=== PATIENT | female | born 1970 | race Two or more races ===

== ENCOUNTER 2020-12-10 15:41 | Inpatient (IN) | payer OTHER ==
[~2020-12-10] VITALS: Ht 180.3 cm; Wt 147.0 kg
--- NOTE | 2020-12-10 15:50 | NUR ---
[facility] FOR FOR ALTERED MENTAL STATUS. PATIENT A/OX1, ON A TRACHE, VENT DEPENDENT. FIO2 OF 40%. PLACED ON THE ROSE GRADER. IV LINE ESTABLISHED. DR. BARAJAS AT BEDSIDE FOR EVAL.
--- NOTE | 2020-12-10 16:08 | NUR ---
TAKEN TO CT
[2020-12-10] MEDS ORDERED: LIOT5TAB7 GT (16:18)
[2020-12-10] MEDS ORDERED: AMLO5TAB4 GT (16:18)
[2020-12-10] MEDS ORDERED: LEVO112T5 GT (16:18)
[2020-12-10] MEDS ORDERED: SERT100T GT (16:18)
[2020-12-10] MEDS ORDERED: IPRA4AER IH ×2 (16:18)
[2020-12-10] MEDS ORDERED: NA P133E RC (16:18)
[2020-12-10] MEDS ORDERED: ZINC220T4 GT (16:18)
[2020-12-10] MEDS ORDERED: TEMA15CA GT (16:18)
[2020-12-10] MEDS ORDERED: SENN8.6T19 GT (16:18)
[2020-12-10] MEDS ORDERED: MAGN400O6 GT (16:18)
[2020-12-10] MEDS ORDERED: BISA10SU11 RC (16:18)
[2020-12-10] MEDS ORDERED: TRAM50TA2 GT (16:18)
[2020-12-10] MEDS ORDERED: TAMS-12 GT (16:18)
[2020-12-10] MEDS ORDERED: FAMO20TA8 GT (16:18)
[2020-12-10] MEDS ORDERED: ASCO500C17 GT (16:18)
[2020-12-10] MEDS ORDERED: ENOX40DI9 SQ (16:18)
[2020-12-10] MEDS ORDERED: AMIN887L GT (16:18)
[2020-12-10] MEDS ORDERED: ACET325T53 GT (16:18)
[2020-12-10] MEDS ORDERED: LORA-258 GT (16:18)
[2020-12-10] MEDS ORDERED: INSU100V7 SQ (16:18)
[2020-12-10] MEDS ORDERED: NUT.237L30 GT (16:18)
[2020-12-10] MEDS ORDERED: INSU100V39 SQ (16:18)
[2020-12-10] MEDS ORDERED: FOLI0.8T3 GT (16:18)
--- NOTE | 2020-12-10 16:20 | NUR ---
MOVE SHEET SUBMITTED AND CALLED FOR BED.
[2020-12-10 16:34] LABS: CARBON DIOXIDE 38 mmol/L (21-32); CHLORIDE 104 mmol/L (98-107); CREATININE 1.3 mg/dL (0.6-1.3); GLUCOSE 187 mg/dL (74-106); SODIUM SERUM 146 mmol/L (136-145); UREA NITROGEN, BLOOD 67 mg/dL (7-18)
--- NOTE | 2020-12-10 16:35 | NUR ---
[facility] CALLED DRILLING MANAGER PAGED.
[2020-12-10 16:36] LABS: CALCIUM, SERUM 14.7 mg/dL (8.5-10.1)
--- NOTE | 2020-12-10 16:41 | NUR ---
COURTNEY CATHETER FR 16 INSERTED VIA STERILE TECHNIQUE, DR. BARAJAS AWARE. URINE OUTPUT SHOWED 50ML. URINE OBTAINED AND SENT TO LAB.
--- NOTE | 2020-12-10 16:42 | NUR ---
COVID SWAB SENT TO LAB.
[2020-12-10 16:45] LABS: BILIRUBIN,URINE Negative (NEGATIVE); COLOR,URINE YELLOW (YELLOW); LEUKOCYTE ESTERASE ,URINE Small (NEGATIVE); NITRITE, URINE Positive (NEGATIVE); PH,URINE 5.5 (5.0-8.0); PROTEIN,URINE 100 mg/dl (NEGATIVE); UGLUCOSE Negative (NEGATIVE); UROBILINOGEN,URINE 0.2 EU/dL (0.2)
[2020-12-10 16:49] LABS: BASOPHILS % (AUTO) 0.2 % (0.0-2.0); BILIRUBIN,TOTAL 0.3 mg/dL (0.2-1.0); EOSINOPHILS % (AUTO) 2.7 % (0.0-6.0); HEMATOCRIT 36 % (33-45); HEMOGLOBIN 11.4 g/dL (11.5-14.8); LYMPHOCYTES # (AUTO) 0.6 K/uL (0.8-4.8); LYMPHOCYTES % (AUTO) 5.2 % (20.0-44.0); MEAN CORPUSCULAR HGB CONC 32 g/dl (31.0-36.0); MEAN CORPUSCULAR VOLUME 97 fL (82-100); MONOCYTES # (AUTO) 0.6 K/uL (0.1-1.30); MONOCYTES % (AUTO) 4.6 % (2.0-12.0); NEUTROPHILS # (AUTO) 10.8 K/uL (1.8-8.9); NEUTROPHILS % (AUTO) 87.3 % (43.0-81.0); PLATELET COUNT (AUTO) 243 K/uL (150-450); RED BLOOD CELL COUNT(AUTO) 3.67 MIL/uL (4.0-5.2); WHITE BLOOD COUNT (AUTO) 12.4 K/uL (4.3-11.0)
[2020-12-10 16:50] LABS: ALANINE AMINOTRANSFERASE 70 U/L (12-78); ALBUMIN 2.7 g/dL (3.4-5.0); ALKALINE PHOSPHATASE 152 U/L (46-116); ASPARTATE AMINOTRANSFERASE 40 U/L (15-37); BILIRUBIN,DIRECT 0.1 mg/dL (0.0-0.2); TOTAL PROTEIN, SERUM 7.8 g/dL (6.4-8.2)
[2020-12-10 16:55] LABS: WBC,URINE 21-50 /HPF (0-3)
[2020-12-10 16:56] LABS: BACTERIA,URINE Many /HPF (None Seen)
[2020-12-10] MEDS ORDERED: IV NS 0.9% 1,000 ML BAG IV ONE (17:00)
[2020-12-10] MEDS ORDERED: CEFTRIAXONE 1GM BAG (ER ONLY) 1 GM/50 ML PIGGYBACK IV ONE (17:00)
[2020-12-10 17:02] LABS: CALCIUM OXALATE CRYSTALS,UR Few /HPF (None Seen)
[2020-12-10] MEDS ORDERED: CEFTRIAXONE 1GM BAG (ER ONLY) 50 ML IV ONE (17:02)
--- NOTE | 2020-12-10 17:07 | NUR ---
GOING TO TELE 105
--- NOTE | 2020-12-10 17:12 | NUR ---
[facility] CALLED AGAIN AIRPLANE PILOT [employer]ER[employer] PAGED.
--- NOTE | 2020-12-10 17:59 | NUR ---
REPORT GIVEN TO DAPHNIE DUDLEY FOR ANYI.
[2020-12-10] MEDS ORDERED: MAGNESIUM HYDROXIDE 30 ML UDC PO PRN (18:00)
[2020-12-10] MEDS ORDERED: ONDANSETRON HCL/PF 4 MG/2 ML VIAL IVP PRN (18:00)
[2020-12-10] MEDS ORDERED: ZOLPIDEM TARTRATE 5 MG TABLET PO PRN (18:00)
[2020-12-10] MEDS ORDERED: MAG HYDROX/AL HYDROX/SIMETH 30 ML UDC PO PRN (18:00)
[2020-12-10] MEDS ORDERED: ACETAMINOPHEN 325 MG TABLET PO PRN ×2 (18:00→18:30)
[2020-12-10] MEDS ORDERED: MAGNESIUM HYDROXIDE 30 ML UDC GT PRN ×2 (18:22→18:30)
[2020-12-10] MEDS ORDERED: MAG HYDROX/AL HYDROX/SIMETH 30 ML UDC GT PRN (18:22)
[2020-12-10] MEDS ORDERED: LORAZEPAM 0.5 MG TABLET GT PRN (18:30)
[2020-12-10] MEDS ORDERED: TEMAZEPAM 15 MG CAPSULE GT PRN (18:30)
[2020-12-10] MEDS ORDERED: NA PHOS,M-B/NA PHOS,DI-BA 1 EA ENEMA RC PRN (18:30)
[2020-12-10] MEDS ORDERED: BISACODYL SUPP (10 MG) 10 MG/SUPP.RECT SUPP.RECT RC PRN (18:30)
[2020-12-10] MEDS ORDERED: TRAMADOL HCL 50 MG TABLET GT PRN (18:30)
--- NOTE | 2020-12-10 18:31 | NUR ---
RN NOTE RECEIVED REPORT FROM ER NURSE ZACKARY.
[2020-12-10] MEDS ORDERED: IPRATROPIUM NEB FS 0.5 MG/2.5 ML AMPUL.NEB NEB PRN (19:00)
[2020-12-10] MEDS ORDERED: ALBUTEROL FS 2.5 MG/0.5 ML VIAL.NEB NEB PRN (19:00)
--- NOTE | 2020-12-10 19:09 | NUR ---
PATIENT TRANSFERRED TO ROOM 105 VIA ACLS PROTOCOL. PATIENT MORE AWAKE AND ALERT, IN STABLE CONDITION. ENDORSED TO DAPHNIE DUDLEY.
--- NOTE | 2020-12-10 19:10 | NUR ---
RN NOTES RECEIVED PT FROM ER VIA ANTONYRJAMEL ACCOMPANIED BY 2 ER STAFF AND TRANSFERRED TO BED VIA 3-4 PERSONS ASSIST. PT IS A/OX1-2; NON VERBAL; PT ON MECHANICAL VENT; SETTINGS PRESCRIBED WITH RESPIRATIONS EVEN AND UNLABORED. COMPREHENSIVE PHYSICAL ASSESSMENT AND PATIENT CARE DONE. CALL LIGHT WITHIN REACH, SAFETY MEASURES AND ISOLATION PRECAUTION IN PLACE, WILL CONTINUE MONITOR AND ASSESS THROUGHOUT THE SHIFT. WILL CARRY OUT MD ORDERS ACCORDINGLY. PETROLEUM SUPPLY SPECIALIST MADE AWARE.
--- NOTE | 2020-12-10 19:11 | NUR ---
RT pt transferred to floor. no complications. vent plugged in to red outlet. ambu bag at bedside. alarms on and audible. hob at 30 degrees. will continue to monitor.
[2020-12-10] MEDS: ALBUTEROL FS 2.5 MG/0.5 ML VIAL.NEB NEB SCH (19:30)
[2020-12-10] MEDS: IPRATROPIUM NEB FS 0.5 MG/2.5 ML AMPUL.NEB NEB SCH (19:30)
[2020-12-10] MEDS: IV NS 0.9% 1,000 ML IV SCH (19:32)
--- NOTE | 2020-12-10 19:55 | NUR ---
RT neb tx not given due to pending pcr results.
[2020-12-10 20:00] VITALS: BP 122/51
[2020-12-10] MEDS: GLUCERNA 1.2 1,000 ML BOTTLE NG SCH (20:37)
[2020-12-10] MEDS: FAMOTIDINE (20 MG) 20 MG TABLET GT SCH (20:53)
[2020-12-10] MEDS: INSULIN GLARGINE, 100 UNIT/ML CARTRIDGE SQ SCH (21:09)
[2020-12-10] MEDS: SENNOSIDES 8.6 MG TABLET GT SCH (22:30)
[2020-12-11] VITALS: BP 132/60
--- NOTE | 2020-12-11 | NUR ---
RN NOTES PATIENT REMAINED TO BE IN NO SIGNS OF ACUTE RESPIRATORY DISTRESS , VITAL SIGNS WNL AT THIS TIME. WILL CONTINUE TO MONITOR AND REASSESS FOR ANY CHANGES THROUGHOUT THE SHIFT.
[2020-12-11] MEDS: ALBUTEROL FS 2.5 MG/0.5 ML VIAL.NEB NEB SCH ×4 (01:30→19:30)
[2020-12-11] MEDS: IPRATROPIUM NEB FS 0.5 MG/2.5 ML AMPUL.NEB NEB SCH ×4 (01:30→19:30)
[2020-12-11 04:00] VITALS: BP 127/60
[2020-12-11] MEDS: IV NS 0.9% 1,000 ML IV SCH ×3 (04:00→23:32)
--- NOTE | 2020-12-11 04:00 | NUR ---
RN NOTES NO NOTED CHANGES IN PATIENT CONDITION AT THIS TIME; PATIENT VITALS STABLE, NO SIGNS OF ACUTE RESPIRATORY DISTRESS. AM PATIENT CARE RENDERED. WILL CONTINUE TO MONITOR AND REASSESS FOR ANY CHANGES THROUGHOUT THE SHIFT.
--- NOTE | 2020-12-11 06:33 | NUR ---
RN CLOSING NOTE: PATIENT REMAINS IN ROOM IN NO SIGNS OF RESPIRATORY DISTRESS, PATIENT STILL ON MECH VENT; SETTINGS PRESCRIBED;TOLERATING WELL SATURATING @ >95% SP02. SAFETY MEASURES IMPLEMENTED, BED IN LOWEST POSITION, LOCKED, SIDE RAILS UP, CALL LIGHT WITHIN REACH. ALL NEEDS AND ORDERS ADDRESSED DURING THE SHIFT. IV ACCESS MAINTAINED INTACT, SECURED AND FLUSHING WELL. ALL DUE MEDS GIVEN ORDERED & SCHEDULED ; PATIENT TOLERATED WELL. PATIENT KEPT CLEAN AND COMFORTABLE WITHIN THE SHIFT. PATIENT ENDORSED TO INCOMING SHIFT RN WITH STABLE VITAL SIGN AND FOR CONTINUITY OF CARE.
--- NOTE | 2020-12-11 07:35 | NUR ---
RN OPENING NOTES: RECEIVED PATIENT IN SUPINE POS. NO SOB NOTED, NO DISTRESS NOTED. PT HAS NO FACIAL EXPRESSIONS SIGNIFYING PAIN. PATIENT ON MECH VENT; SETTINGS PRESCRIBED;TOLERATING WELL SATURATING @ >96% SP02. SAFETY MEASURES IMPLEMENTED, BED IN LOWEST POSITION, LOCKED, SIDE RAILS UP, CALL LIGHT WITHIN REACH. WILL CONTINUE TO MONITOR.
[2020-12-11 08:00] VITALS: BP 130/60
[2020-12-11] MEDS: LEVOTHYROXINE SODIUM 100 MCG TABLET GT SCH (08:27)
[2020-12-11] MEDS: FOLIC ACID 1 MG TABLET GT SCH (08:41)
[2020-12-11] MEDS: SERTRALINE HCL 50 MG TABLET GT SCH ×2 (08:41→16:03)
[2020-12-11] MEDS: LIOTHYRONINE SODIUM (5 MCG/TA 5 MCG TABLET GT SCH ×2 (08:41→16:03)
[2020-12-11] MEDS: FAMOTIDINE (20 MG) 20 MG TABLET GT SCH ×2 (08:43→21:42)
[2020-12-11] MEDS: TAMSULOSIN 0.4 MG CAP.SR.24H GT SCH (08:43)
[2020-12-11] MEDS: ZINC SULFATE 220 MG CAPSULE GT SCH (08:43)
[2020-12-11] MEDS: ASCORBIC ACID 500 MG TABLET GT SCH (08:43)
[2020-12-11] MEDS: AMLODIPINE BESYLATE 5 MG TABLET GT SCH (08:43)
[2020-12-11] MEDS: ENOXAPARIN SODIUM 40 MG/0.4 ML DISP.SYRIN SQ SCH (08:58)
[2020-12-11] MEDS ORDERED: PROSTAT (PYXIS) 30 ML UDC GT SCH (09:00)
[2020-12-11] MEDS: INSULIN GLARGINE, 100 UNIT/ML CARTRIDGE SQ SCH ×2 (09:15→21:59)
[2020-12-11] MEDS: PROSOURCE / PROSTAT (PYXIS) 30 ML UDC GT SCH ×2 (09:16→16:04)
[2020-12-11 10:10] LABS: BASOPHILS % (AUTO) 0.1 % (0.0-2.0); EOSINOPHILS % (AUTO) 3.3 % (0.0-6.0); HEMATOCRIT 33 % (33-45); HEMOGLOBIN 10.6 g/dL (11.5-14.8); LYMPHOCYTES # (AUTO) 1.1 K/uL (0.8-4.8); LYMPHOCYTES % (AUTO) 10.8 % (20.0-44.0); MEAN CORPUSCULAR HGB CONC 32 g/dl (31.0-36.0); MEAN CORPUSCULAR VOLUME 97 fL (82-100); MONOCYTES % (AUTO) 10.2 % (2.0-12.0); NEUTROPHILS # (AUTO) 7.5 K/uL (1.8-8.9); NEUTROPHILS % (AUTO) 75.6 % (43.0-81.0); PLATELET COUNT (AUTO) 225 K/uL (150-450); RED BLOOD CELL COUNT(AUTO) 3.36 MIL/uL (4.0-5.2); WHITE BLOOD COUNT (AUTO) 9.9 K/uL (4.3-11.0)
[2020-12-11 10:15] LABS: CREATININE 1.3 mg/dL (0.6-1.3); MAGNESIUM 2.6 mg/dL (1.8-2.4); PHOSPHORUS 3.5 mg/dL (2.5-4.9)
[2020-12-11 10:16] LABS: ABG BASE EXCESS 6.6 mmol/L; ABG OXYGEN SATURATION 96.3 % (92.0-98.5); ABG PCO2 56.5 mmHg (35.0-45.0); ABG PH 7.384 (7.350-7.450); ABG PO2 83.9 mmHg (75.0-100.0); AaDO2 136.3 mmHg; COHb 0.5 % (0.5-1.5); MetHb 0.4 % (0.0-1.5); O2Hb 95.4 % (94.0-97.0); VENT MODE, BG AC 10 400 40% +5
[2020-12-11 10:41] LABS: CALCIUM, SERUM 13.7 mg/dL (8.5-10.1)
[2020-12-11 11:01] LABS: ALBUMIN 2.3 g/dL (3.4-5.0)
[2020-12-11 11:37] LABS: CALCIUM, SERUM 13.9 mg/dL (8.5-10.1)
[2020-12-11 12:00] VITALS: BP 141/75
[2020-12-11 16:00] VITALS: BP 127/60
[2020-12-11] MEDS: CEFTRIAXONE 1 G in IV D5W 50 ML IV SCH (16:00)
[2020-12-11] MEDS: ACETAMINOPHEN 650 MG/20.3 ML UDC GT PRN ×2 (18:18→21:42)
[2020-12-11] MEDS: GLUCERNA 1.2 1,000 ML BOTTLE NG SCH (18:46)
--- NOTE | 2020-12-11 18:58 | NUR ---
RN CLOSING NOTES: PATIENT IN SUPINE POS. NO SOB NOTED, NO DISTRESS NOTED. PT HAS NO FACIAL EXPRESSIONS SIGNIFYING PAIN. PATIENT ON MECH VENT; SETTINGS PRESCRIBED;TOLERATING WELL SATURATING @ >98% SP02. ALL MEDICATIONS GIVEN AND TOLERATED WELL. PT KEPT CLEAN, DRY, COMFORTABLE. SAFETY MEASURES IMPLEMENTED, BED IN LOWEST POSITION, LOCKED, SIDE RAILS UP. NO SIGNIFICANT CHANGES THROUGHOUT SHIFT. ENDORSE TO OVERHEAD CRANE OPERATOR RN IN STABLE CONDITION.
--- NOTE | 2020-12-11 19:30 | NUR ---
RN OPENING NOTE PATIENT IN BED, EYES CLOSED. PATIENT ONLY OPENS EYES, NON VERBAL. PATIENT RECEIVED WITH VENT SETTINGS AC 10, TV 400, FIO2 40, PEEP 5% SATTING AT 98%. PATIENT HAS A COURTNEY DRAINING YELLOW URINE VIA GRAVITY. G TUBE HAS GLUCERNA 1.2 AT 70 CC/HR. RESIDUAL IS 110. WILL PAUSE FOR 1 HOUR AND RESTART AT A LOWER RATE. PATIENT HAS A L HAND 18 G RUNNING NS @100 ML/HR AND A R SUBCLAVIAN HD CATH. SAFETY MEASURES IN PLACE: BED LOCKED AND IN LOWEST POSITION, CALL LIGHT WITHIN REACH, SIDE RAILS UP. WILL MONITOR PATIENT CLOSELY.
--- NOTE | 2020-12-11 19:45 | NUR ---
RCVD PT TRACHED SHILEY 8 XLT ON VENT WITH THE SETTINGS OF AC 10, VT 400, FIO2 40%, PEEP 5. PT IS OBTUNDED ,NON VERBAL. BREATHING TX NOT GIVEN DUE TO PENDING PCR COVID TEST RESULT. SUCTIONED SMALL AMOUNT OF YELLOW THICK SECRETIONS. NO RESPIRATORY DISTRESS NOTED AT THIS TIME. CUFF CHECKED SEISMIC PROSPECTING OBSERVER. VENT PLUGGED INTO RED OUTLET , VENT ALARMS SET AND AUDIBLE. AMBU BAG AT BEDSIDE. WILL CONTINUE TO MONITOR PT T/O SHIFT.
[2020-12-11 20:00] VITALS: BP 128/65
[2020-12-11] MEDS: SENNOSIDES 8.6 MG TABLET GT SCH (21:42)
--- NOTE | 2020-12-11 22:00 | NUR ---
RN NOTE PATIENT GIVEN TYLENOL FOR FEVER 100.6, COOLING MEASURES IMPLEMENTED. BS WAS 150, LANTUS ADMINISTERED. HAS CONTINUOUS TF.
[2020-12-12] VITALS: BP 122/78
[2020-12-12] MEDS: IPRATROPIUM NEB FS 0.5 MG/2.5 ML AMPUL.NEB NEB SCH ×5 (01:08→20:12)
[2020-12-12] MEDS: ALBUTEROL FS 2.5 MG/0.5 ML VIAL.NEB NEB SCH ×5 (01:08→20:12)
[2020-12-12 04:00] VITALS: BP 124/67
--- NOTE | 2020-12-12 06:50 | NUR ---
RN CLOSING NOTE PATIENT IN BED, EYES CLOSED. PATIENT ONLY OPENS EYES, NON VERBAL. PATIENT TOLERATES VENT SETTINGS OF AC 10, TV 400, FIO2 40, PEEP 5% SATTING AT 98%. PATIENT HAS A COURTNEY DRAINING YELLOW URINE VIA GRAVITY. G TUBE HAS GLUCERNA 1.2 AT 70 CC/HR. TOLERATES WELL. PATIENT HAS A L HAND 18 G RUNNING NS @100 ML/HR AND A R SUBCLAVIAN HD CATH. SAFETY MEASURES MAINTAINED. ALL NEEDS MET AND ATTENDED, ALL ORDERS CARRIED OUT. WILL ENDORSE TO DAY SHIFT NURSE FOR ANYI.
[2020-12-12 07:19] LABS: BASOPHILS % (AUTO) 0.2 % (0.0-2.0); EOSINOPHILS % (AUTO) 2.7 % (0.0-6.0); HEMATOCRIT 30 % (33-45); HEMOGLOBIN 9.8 g/dL (11.5-14.8); LYMPHOCYTES # (AUTO) 1.7 K/uL (0.8-4.8); LYMPHOCYTES % (AUTO) 18.5 % (20.0-44.0); MEAN CORPUSCULAR HGB CONC 33 g/dl (31.0-36.0); MEAN CORPUSCULAR VOLUME 97 fL (82-100); MONOCYTES # (AUTO) 1.2 K/uL (0.1-1.30); MONOCYTES % (AUTO) 12.9 % (2.0-12.0); NEUTROPHILS # (AUTO) 5.9 K/uL (1.8-8.9); NEUTROPHILS % (AUTO) 65.7 % (43.0-81.0); PLATELET COUNT (AUTO) 213 K/uL (150-450); RED BLOOD CELL COUNT(AUTO) 3.07 MIL/uL (4.0-5.2); WHITE BLOOD COUNT (AUTO) 8.9 K/uL (4.3-11.0)
[2020-12-12] MEDS: LEVOTHYROXINE SODIUM 100 MCG TABLET GT SCH (07:30)
--- NOTE | 2020-12-12 07:34 | NUR ---
RN OPENINGS; RECEIVED PT IN BED, RESTING. IN SUPINE POS. PT IS NON VERBAL. A/OX1. PT ON TRACH #8, AC 10, TV 4. PT ON COURTNEY DRAINING YELLOW COLOR URINE.IV ACCESS NOTED ON L HAND 18G. PATENT WITH NO SIGNS ON INFILTRATION. PT ON GLUCERNA 1.2 @70CC/HR. SAFETY MEASURES RENDERED, BED IN LOWEST POS. LOCKED WITH CALL LIGHT WITHIN REACH. WILL CONTINUE TO MONITOR.
[2020-12-12 07:41] LABS: ALBUMIN 2.2 g/dL (3.4-5.0); BILIRUBIN,TOTAL 0.2 mg/dL (0.2-1.0); CALCIUM, SERUM 12.7 mg/dL (8.5-10.1); CREATININE 1.5 mg/dL (0.6-1.3); MAGNESIUM 2.7 mg/dL (1.8-2.4); POTASSIUM 3.7 mmol/L (3.5-5.1); TOTAL PROTEIN, SERUM 6.8 g/dL (6.4-8.2)
--- NOTE | 2020-12-12 07:58 | NUR ---
RT PATIENT REC'D TRACHED ON VENT WITH ORDERED SETTINGS. ALARMS CHECKED + AUDIBLE. ABEBA BAG AT HOB. Addendum: 12/12/20 at 1733 by AKILAH SHEA RT Amended: Links added.
[2020-12-12 08:00] VITALS: BP 153/68
[2020-12-12] MEDS: FOLIC ACID 1 MG TABLET GT SCH (08:38)
[2020-12-12] MEDS: ZINC SULFATE 220 MG CAPSULE GT SCH (08:38)
[2020-12-12] MEDS: SERTRALINE HCL 50 MG TABLET GT SCH ×2 (08:38→16:02)
[2020-12-12] MEDS: TAMSULOSIN 0.4 MG CAP.SR.24H GT SCH (08:38)
[2020-12-12] MEDS: LIOTHYRONINE SODIUM (5 MCG/TA 5 MCG TABLET GT SCH ×2 (08:38→16:02)
[2020-12-12] MEDS: FAMOTIDINE (20 MG) 20 MG TABLET GT SCH ×2 (08:39→21:57)
[2020-12-12] MEDS: ASCORBIC ACID 500 MG TABLET GT SCH (08:39)
[2020-12-12] MEDS: INSULIN GLARGINE, 100 UNIT/ML CARTRIDGE SQ SCH ×2 (08:40→22:03)
[2020-12-12] MEDS: AMLODIPINE BESYLATE 5 MG TABLET GT SCH (08:41)
[2020-12-12] MEDS: PROSOURCE / PROSTAT (PYXIS) 30 ML UDC GT SCH ×2 (08:45→16:07)
[2020-12-12] MEDS: ENOXAPARIN SODIUM 40 MG/0.4 ML DISP.SYRIN SQ SCH (08:51)
[2020-12-12 08:59] LABS: BAND % (MANUAL) 4 % (0.0-5.0); EOSINOPHILS % (MANUAL) 3 % (0-4); LYMPHOCYTES % (MANUAL) 20 % (16-48); MONOCYTES % (MANUAL) 12 % (0-11.0); MYELOCYTES % 1 % (0-0); NEUTROPHILS % (MANUAL) 60 (42-76)
--- NOTE | 2020-12-12 09:02 | NUR ---
WOUND CARE CONSULT: REVIEWED CHART, NURSING DOCUMENTATION AND PHOTOS WHICH INDICATE LOWER EXTREMITY DISCOLORATIONS/SCARS, SACRAL SCARRING AND RASHES, ALL PRESENT ON ADMISSION. DR FRANK AND DR LION NOTIFIED OF PT ADMISSION. RECOMMENDATIONS MADE FOR SKIN PROTECTION. DISCUSSED WITH NURSING STAFF. PT IS ON FIRST STEP CELIO RNEEE [facility]. IN AGREEMENT WITH PLAN OF CARE.
[2020-12-12] MEDS: IV NS 0.9% 1,000 ML IV SCH (10:09)
[2020-12-12 12:00] VITALS: BP 146/64
[2020-12-12] MEDS: Z GUARD REMEDY 2 OZ OINT TP PRN ×2 (14:15→14:21)
[2020-12-12] MEDS: Z GUARD REMEDY 2 OZ OINT TP SCH ×2 (14:50→21:57)
[2020-12-12 16:00] VITALS: BP 128/68
[2020-12-12] MEDS: CEFTRIAXONE 1 G in IV D5W 50 ML IV SCH (16:03)
[2020-12-12] MEDS: IV 1/2NS 1000 ML 1,000 ML IV PRN (16:06)
--- NOTE | 2020-12-12 18:17 | NUR ---
RN CLOSING NOTES: PATIENT IN SUPINE RESTING IN BED. NO SOB NOTED, NO DISTRESS NOTED. PT HAS NO FACIAL PATIENT ON MECH VENT; SETTINGS PRESCRIBED;TOLERATING WELL SATURATING @ >98% SP02. IV FLUIDS CHANGED TO 1/2 NSS @100CC/HR. ALL MEDICATIONS GIVEN AND TOLERATED WELL. PT KEPT CLEAN, DRY, COMFORTABLE. SAFETY MEASURES IMPLEMENTED, BED IN LOWEST POSITION, LOCKED, SIDE RAILS UP. NO SIGNIFICANT CHANGES THROUGHOUT SHIFT. ENDORSE TO CONTRACT PROJECT MANAGER RN IN STABLE CONDITION.
[2020-12-12] MEDS: GLUCERNA 1.2 1,000 ML BOTTLE GT PRN (18:31)
--- NOTE | 2020-12-12 19:30 | NUR ---
1930 breathing tx held due to pending pcr result. rn notified Addendum: 12/12/20 at 2326 by SIGRID CHERY RT Amended: Links added.
--- NOTE | 2020-12-12 19:35 | NUR ---
RN NOTE PT RECEIVED IN BED. PT IS TRACH/VENT. SETTINGS AT AC 10, TV 400, FIO2 40, AND PEEP 5. TOLERATING VENT SETTINGS WELL. PT IS A/0X2-3. PT ON TELE MONITOR SHOWING NSR. COURTNEY CATH NOTED. G-TUBE FLUSHED WITH NO RESIDUAL NOTED. GLUCERNA RUNNING AT 70 ML/HR. PT TOLERATING WELL. RIGHT SUBCLAVIAN HD CATH NOTED. IV LINE ON LEFT HAND GAUGE 18 NOTED. FLUSHED, PATENT AND INTACT WITH NO INFILTRATION. ALL SAFETY MEASURES IMPLEMENTED. WILL CONTINUE TO MONITOR AND ASSESS FOR ANY CHANGES.
[2020-12-12 20:00] VITALS: BP 129/69
[2020-12-12] MEDS: SENNOSIDES 8.6 MG TABLET GT SCH (21:57)
[2020-12-13] VITALS: BP 121/86
[2020-12-13] MEDS: IPRATROPIUM NEB FS 0.5 MG/2.5 ML AMPUL.NEB NEB SCH ×4 (01:30→20:18)
[2020-12-13] MEDS: ALBUTEROL FS 2.5 MG/0.5 ML VIAL.NEB NEB SCH ×4 (01:30→20:17)
[2020-12-13] MEDS: IV 1/2NS 1000 ML 1,000 ML IV PRN ×2 (03:26→13:12)
[2020-12-13 04:00] VITALS: BP 116/66
[2020-12-13 06:17] LABS: BASOPHILS % (AUTO) 0.2 % (0.0-2.0); EOSINOPHILS % (AUTO) 4.8 % (0.0-6.0); HEMATOCRIT 29 % (33-45); HEMOGLOBIN 9.4 g/dL (11.5-14.8); LYMPHOCYTES # (AUTO) 1.5 K/uL (0.8-4.8); LYMPHOCYTES % (AUTO) 18.6 % (20.0-44.0); MEAN CORPUSCULAR HGB CONC 33 g/dl (31.0-36.0); MEAN CORPUSCULAR VOLUME 97 fL (82-100); MONOCYTES % (AUTO) 12.5 % (2.0-12.0); NEUTROPHILS % (AUTO) 63.9 % (43.0-81.0); PLATELET COUNT (AUTO) 219 K/uL (150-450); RED BLOOD CELL COUNT(AUTO) 2.96 MIL/uL (4.0-5.2); WHITE BLOOD COUNT (AUTO) 7.9 K/uL (4.3-11.0)
[2020-12-13 06:47] LABS: CALCIUM, SERUM 11.6 mg/dL (8.5-10.1); CREATININE 1.3 mg/dL (0.6-1.3); POTASSIUM 3.8 mmol/L (3.5-5.1)
--- NOTE | 2020-12-13 07:19 | NUR ---
RN NOTE NO CHANGES IN PT CONDITION DURING SHIFT. PT IS TRACH/VENT. SETTINGS AT AC 10, TV 400, FIO2 40, AND PEEP 5. TOLERATING VENT SETTINGS WELL. PT IS A/0X2-3. PT ON TELE MONITOR SHOWING NSR. GLUCERNA RUNNING AT 70 ML/HR. PT TOLERATING WELL. RIGHT SUBCLAVIAN HD CATH NOTED. IV LINE ON LEFT HAND GAUGE 18 NOTED. IV LINE FLUSHED, PATENT AND INTACT WITH NO INFILTRATION. ALL DUE MEDS GIVEN ORDERED. PT KEPT CLEAN AND COMFORTABLE. ALL SAFETY MEASURES IMPLEMENTED. WILL ENDORSE TO MORNING SHIFT RN FOR ANYI.
[2020-12-13 08:00] VITALS: BP_SYST 157; BP_DIAS 69; BP_DIAS 88
[2020-12-13] MEDS: LEVOTHYROXINE SODIUM 100 MCG TABLET GT SCH (08:23)
[2020-12-13] MEDS: FAMOTIDINE (20 MG) 20 MG TABLET GT SCH ×2 (08:24→20:53)
[2020-12-13] MEDS: AMLODIPINE BESYLATE 5 MG TABLET GT SCH (08:24)
[2020-12-13] MEDS: SERTRALINE HCL 50 MG TABLET GT SCH ×2 (08:25→16:07)
[2020-12-13] MEDS: ASCORBIC ACID 500 MG TABLET GT SCH (08:25)
[2020-12-13] MEDS: FOLIC ACID 1 MG TABLET GT SCH (08:25)
[2020-12-13] MEDS: TAMSULOSIN 0.4 MG CAP.SR.24H GT SCH (08:25)
[2020-12-13] MEDS: ZINC SULFATE 220 MG CAPSULE GT SCH (08:25)
[2020-12-13] MEDS: PROSOURCE / PROSTAT (PYXIS) 30 ML UDC GT SCH ×2 (08:25→16:08)
[2020-12-13] MEDS: ENOXAPARIN SODIUM 40 MG/0.4 ML DISP.SYRIN SQ SCH (08:26)
[2020-12-13] MEDS: Z GUARD REMEDY 2 OZ OINT TP PRN (08:28)
[2020-12-13] MEDS: Z GUARD REMEDY 2 OZ OINT TP SCH ×2 (08:29→20:55)
[2020-12-13] MEDS: LIOTHYRONINE SODIUM (5 MCG/TA 5 MCG TABLET GT SCH ×2 (08:44→16:07)
[2020-12-13] MEDS: INSULIN GLARGINE, 100 UNIT/ML CARTRIDGE SQ SCH ×2 (08:45→20:53)
[2020-12-13 10:07] LABS: *SPE A/G RATIO 0.6 (0.7-1.7); *SPE ALPHA-1-GLOBULIN 0.4 g/dL (0.0-0.4); *SPE ALPHA-2-GLOBULIN 0.8 g/dL (0.4-1.0); *SPE BETA GLOBULIN 1.1 g/dL (0.7-1.3); *SPE M-SPIKE Not Observed g/dL (Not Observed)
[2020-12-13 10:08] LABS: EOSINOPHILS % (MANUAL) 3 % (0-4); LYMPHOCYTES % (MANUAL) 24 % (16-48); MONOCYTES % (MANUAL) 9 % (0-11.0); MYELOCYTES % 1 % (0-0); NEUTROPHILS % (MANUAL) 63 (42-76)
[2020-12-13 12:00] VITALS: BP_SYST 112; BP_SYST 142; BP_DIAS 68; BP_DIAS 72
[2020-12-13 16:00] VITALS: BP 130/87
[2020-12-13] MEDS: CEFTRIAXONE 1 G in IV D5W 50 ML IV SCH (16:07)
[2020-12-13] MEDS: ACETAMINOPHEN 650 MG/20.3 ML UDC GT PRN (16:52)
--- NOTE | 2020-12-13 18:21 | NUR ---
RN CLOSING NOTES PT IN BED RESTING. PT IS A/OX1-2. PT IS TRACH/VENT. SETTINGS AT AC 10, TV 400, FIO2 40, AND PEEP 5. TOLERATING VENT SETTINGS WELL. COURTNEY CATH NOTED. G-TUBE FLUSHED AND RUNNING GLUCERNA 70 ML/HR. PT TOLERATING WELL. RIGHT SUBCLAVIAN HD CATH NOTED. (L) MIDLINE G 18 RUNNING AND PATENT. PATENT WITH NO SIGNS OF INFILTRATION. FALL SAFETY MEASURES IMPLEMENTED, BED IN LOWEST POS. LOCKED. NO SIGNIFICANT CHANGES. ENDORSED TO MACHINE STRIPPER CUTTER IN STABLE CONDITION.
[2020-12-13 20:00] VITALS: BP 124/51
[2020-12-13] MEDS: SENNOSIDES 8.6 MG TABLET GT SCH (21:19)
[2020-12-13] MEDS ORDERED: MICAFUNGIN SODIUM 100 MG VIAL IV ONE (23:39)
[2020-12-13] MEDS: MICAFUNGIN SODIUM 100 MG in IV NS 0.9% 100 ML IV SCH (23:42)
[2020-12-14] VITALS: BP 127/63
[2020-12-14] MEDS: IV 1/2NS 1000 ML 1,000 ML IV PRN (01:00)
[2020-12-14] MEDS: ALBUTEROL FS 2.5 MG/0.5 ML VIAL.NEB NEB SCH ×4 (01:46→19:15)
[2020-12-14] MEDS: IPRATROPIUM NEB FS 0.5 MG/2.5 ML AMPUL.NEB NEB SCH ×4 (01:46→19:15)
[2020-12-14] MEDS: GLUCERNA 1.2 1,000 ML BOTTLE GT PRN (03:14)
[2020-12-14 04:00] VITALS: BP 98/59
--- NOTE | 2020-12-14 06:57 | NUR ---
RN CLOSING NOTES PATENT IN BED CONTINUE ON MECHANICAL VENTILATOR WITH TRACH/VENT, TOLERATED SETTINGS WELL, NO SOB/ACUTE DISTRESS NOTED DURING THE NIGHT, AFEBRILE AT THE BEGINNING OF SHIFT, ON IVF ORDERED VIA MIDLINE, G-TUBE FLUSHED AND RUNNING GLUCERNA 70 ML/HR. PT TOLERATING WELL, RIGHT SUBCLAVIAN HD CATH IN PLACED, BED IN LOWEST POS. LOCKED, NO SIGNIFICANT CHANGE IN CONDITION DURING THE NIGHT, WILL ENDORSED TO ONCOMING NURSE FOR CONTINUATION OF CARE.
[2020-12-14 07:12] LABS: BASOPHILS % (AUTO) 0.3 % (0.0-2.0); EOSINOPHILS % (AUTO) 5.7 % (0.0-6.0); HEMATOCRIT 29 % (33-45); HEMOGLOBIN 9.4 g/dL (11.5-14.8); LYMPHOCYTES # (AUTO) 1.9 K/uL (0.8-4.8); LYMPHOCYTES % (AUTO) 26.7 % (20.0-44.0); MEAN CORPUSCULAR HGB CONC 33 g/dl (31.0-36.0); MEAN CORPUSCULAR VOLUME 98 fL (82-100); MONOCYTES # (AUTO) 1.1 K/uL (0.1-1.30); MONOCYTES % (AUTO) 15.2 % (2.0-12.0); NEUTROPHILS # (AUTO) 3.7 K/uL (1.8-8.9); NEUTROPHILS % (AUTO) 52.1 % (43.0-81.0); PLATELET COUNT (AUTO) 210 K/uL (150-450); RED BLOOD CELL COUNT(AUTO) 2.94 MIL/uL (4.0-5.2)
--- NOTE | 2020-12-14 07:30 | NUR ---
RN KASSANDRA OPENING NOTE VENT/TRACH PT, A/Ox1, PT IS TIRED, IN BED SEMIFOWLERS ON VENT SETTINGS PER MD ORDER: AC 10, TV 400, FIO2 40, PEEP 5, SPO2 97%, BREATHING EVEN AND UNLABORED, NO S/S OF RESP DISTRESS OR SOB. PER REPORT PT ABLE TO MOUTH WORDS AND NEEDS, BUT CURRENTLY UNABLE TO DUE SO. COURTNEY CATH NOTED, DRAINING CLEAR KHALIDA URINE TO GRAVITY. G-TUBE FLUSHED, PATENT, AND RUNNING GLUCERNA 70 ML/HR, 0 RESIDUALS NOTED, PT TOLERATING WELL. RIGHT SUBCLAVIAN HD CATH NOTED. MITCHEL MIDLINE FLUSHED AND INTACT RUNNING 1/2 NS @ 125 ML/HR, LEFT HAND # 18, PATENT, BOTH WITH NO SIGNS OF INFILTRATION. PT SACRAL REDNESS NOTED, RT ANKLE DTI COVERED IN MEPILEX. ALL SAFETY PRECAUTIONS IN PLACE, WILL CONT TO MONITOR
[2020-12-14 07:59] LABS: CREATININE 1.3 mg/dL (0.6-1.3); PHOSPHORUS 3.4 mg/dL (2.5-4.9); POTASSIUM 3.7 mmol/L (3.5-5.1)
[2020-12-14 08:00] VITALS: BP 128/71
[2020-12-14 08:00] LABS: CALCIUM, SERUM 10.8 mg/dL (8.5-10.1)
[2020-12-14] MEDS: SERTRALINE HCL 50 MG TABLET GT SCH ×2 (08:24→17:44)
[2020-12-14] MEDS: ASCORBIC ACID 500 MG TABLET GT SCH (08:24)
[2020-12-14] MEDS: TAMSULOSIN 0.4 MG CAP.SR.24H GT SCH (08:24)
[2020-12-14] MEDS: LIOTHYRONINE SODIUM (5 MCG/TA 5 MCG TABLET GT SCH ×2 (08:24→17:44)
[2020-12-14] MEDS: LEVOTHYROXINE SODIUM 100 MCG TABLET GT SCH (08:24)
[2020-12-14] MEDS: ZINC SULFATE 220 MG CAPSULE GT SCH (08:25)
[2020-12-14] MEDS: FAMOTIDINE (20 MG) 20 MG TABLET GT SCH ×2 (08:25→20:54)
[2020-12-14] MEDS: FOLIC ACID 1 MG TABLET GT SCH (08:25)
[2020-12-14] MEDS: PROSOURCE / PROSTAT (PYXIS) 30 ML UDC GT SCH ×2 (08:25→17:43)
[2020-12-14] MEDS: ENOXAPARIN SODIUM 40 MG/0.4 ML DISP.SYRIN SQ SCH (08:26)
[2020-12-14] MEDS: AMLODIPINE BESYLATE 5 MG TABLET GT SCH (08:26)
[2020-12-14] MEDS: Z GUARD REMEDY 2 OZ OINT TP SCH ×2 (08:27→21:12)
[2020-12-14 09:37] LABS: BAND % (MANUAL) 1 % (0.0-5.0); EOSINOPHILS % (MANUAL) 9 % (0-4); LYMPHOCYTES % (MANUAL) 29 % (16-48); MONOCYTES % (MANUAL) 14 % (0-11.0); MYELOCYTES % 1 % (0-0); NEUTROPHILS % (MANUAL) 46 (42-76)
[2020-12-14] MEDS: INSULIN GLARGINE, 100 UNIT/ML CARTRIDGE SQ SCH ×2 (10:17→21:12)
[2020-12-14 12:00] VITALS: BP 124/65
[2020-12-14 16:00] VITALS: BP 122/75
[2020-12-14] MEDS: CEFTRIAXONE 1 G in IV D5W 50 ML IV SCH (17:43)
--- NOTE | 2020-12-14 19:00 | NUR ---
RN KASSANDRA CLOSING NOTE PT ON SAME VENT SETTINGS PER MD ORDER, TOLERATING WELL, SPO2 > 97%, NO RESP DISTRESS NOTED. NO CHANGES TO PT DURING SHIFT, PT NOW A/Ox 2-3. ALL PT SAFETY PRECAUTIONS IN PLACE, ANYI ENDORSED TO PHILOSOPHY PROFESSOR RN
--- NOTE | 2020-12-14 19:30 | NUR ---
RN OPENING NOTES: RECEIVED PT A/OX2-3 IN BED RESTING COMFORTABLY. PATIENT IN NO S/SX OF ACUTE DISTRESS AT THIS TIME. NO SOB NOTED. PATIENT'S BREATHING IS EVEN AND UNLABORED. PATIENT ON MECHANICAL VENT; SETTINGS PRESCRIBED; PT TOLERATED WELL. AMBU BAG AT BED SIDE ALARMS SET PER PROTOCOL AND AUDIBLE. VENT PLUGGED IN TO RED OUTLET. PT HAS G TUBE FLUSHING AND PATENT; SITE CLEAN DRY AND INTACT; NO RESIDUAL NOTED; CONNECTED TO GTUBE FEEDING OF GLUCERNA 1.2 @70CC/HR;TOLERATES WELL. NOTED IV SITE ON L UA MIDLINE#18 ; PATENT, INTACT AND FLUSHING WELL; NO S/S OF INFECTION OR INFILTRATION. PT ALSO HAS R SUBCLAVIAN HD CATH SECURED AND INTACT NO SIGNS OF INFECTION. WITH IV FLUID RUNNING ORDERED. WITH COURTNEY CATH IN PLACE, MODERATE URINE OUTPUT NOTED. ON SPECIALTY MATTRESS. SAFETY MEASURES HAVE BEEN PROVIDED AND IMPLEMENTED. PATIENT BED ALARM IS ON. HEAD OF BED ELEVATED. BED IS LOCKED, IN LOWEST POSITION AND SIDE RAILS UP. CALL LIGHT WITHIN REACH OF THE PATIENT. APPLICABLE ISOLATION PRECAUTIONS IN PLACE. WILL CONTINUE TO MONITOR AND REASSESS FOR ANY CHANGES AND WILL CARRY OUT ANY ONGOING AND ACTIVE MD ORDER.
[2020-12-14 20:00] VITALS: BP 127/84
[2020-12-14] MEDS: SENNOSIDES 8.6 MG TABLET GT SCH (21:10)
--- NOTE | 2020-12-14 21:10 | NUR ---
RN NOTES ACCU CHECK DONE 164MG/DL. WILL GIVE SCHEDULED LANTUS 24U. PT WITH ONGOING GTUBE FEEDING. WILL CONTINUE TO MONITOR AND ASSESS THROUGHOUT THE SHIFT.
[2020-12-14] MEDS: MICAFUNGIN SODIUM 100 MG in IV NS 0.9% 100 ML IV SCH (22:05)
[2020-12-15] VITALS: BP 118/51
--- NOTE | 2020-12-15 | NUR ---
RN NOTES PATIENT REMAINED TO BE IN NO SIGNS OF ACUTE RESPIRATORY DISTRESS , VITAL SIGNS WNL AT THIS TIME. CHILDCARE CENTER DIRECTOR MADE AWARE. WILL CONTINUE TO MONITOR AND REASSESS FOR ANY CHANGES THROUGHOUT THE SHIFT.
[2020-12-15] MEDS: GLUCERNA 1.2 1,000 ML BOTTLE GT PRN ×2 (01:49→21:56)
[2020-12-15] MEDS: ALBUTEROL FS 2.5 MG/0.5 ML VIAL.NEB NEB SCH ×4 (01:53→19:44)
[2020-12-15] MEDS: IPRATROPIUM NEB FS 0.5 MG/2.5 ML AMPUL.NEB NEB SCH ×4 (01:53→19:44)
[2020-12-15] MEDS: IV 1/2NS 1000 ML 1,000 ML IV PRN ×2 (03:01→17:42)
[2020-12-15 04:00] VITALS: BP 124/60
--- NOTE | 2020-12-15 04:00 | NUR ---
RN NOTES NO NOTED CHANGES IN PATIENT CONDITION AT THIS TIME; PATIENT VITALS STABLE, NO SIGNS OF ACUTE RESPIRATORY DISTRESS. AM PATIENT CARE RENDERED. CURRENCY EXCHANGE SPECIALIST MADE AWARE. WILL CONTINUE TO MONITOR AND REASSESS FOR ANY CHANGES THROUGHOUT THE SHIFT.
[2020-12-15 06:55] LABS: BASOPHILS % (AUTO) 0.3 % (0.0-2.0); EOSINOPHILS % (AUTO) 5.3 % (0.0-6.0); HEMATOCRIT 27 % (33-45); HEMOGLOBIN 9.1 g/dL (11.5-14.8); LYMPHOCYTES # (AUTO) 1.4 K/uL (0.8-4.8); LYMPHOCYTES % (AUTO) 19.8 % (20.0-44.0); MEAN CORPUSCULAR HGB CONC 33 g/dl (31.0-36.0); MEAN CORPUSCULAR VOLUME 98 fL (82-100); MONOCYTES # (AUTO) 1.1 K/uL (0.1-1.30); MONOCYTES % (AUTO) 16.5 % (2.0-12.0); NEUTROPHILS % (AUTO) 58.1 % (43.0-81.0); PLATELET COUNT (AUTO) 206 K/uL (150-450); RED BLOOD CELL COUNT(AUTO) 2.81 MIL/uL (4.0-5.2)
[2020-12-15 07:28] LABS: CALCIUM, SERUM 10.6 mg/dL (8.5-10.1); CREATININE 1.2 mg/dL (0.6-1.3); PHOSPHORUS 3.5 mg/dL (2.5-4.9); POTASSIUM 4.1 mmol/L (3.5-5.1)
--- NOTE | 2020-12-15 07:50 | NUR ---
TELE/RN OPENING NOTES PT RECEIVED IN BED RESTING. PT IS A/OX1-2. PT ABLE TO VERBALIZE NEEDS BY USING GESTURE. PT IS TRACH/VENT. SETTINGS AT AC 10, TV 400, FIO2 40, AND PEEP 5. TOLERATING VENT SETTINGS WELL. COURTNEY CATH NOTED. G-TUBE FLUSHED AND RUNNING GLUCERNA 70 ML/HR. PT TOLERATING WELL. RIGHT SUBCLAVIAN HD CATH NOTED. IV LINE ON LEFT HAND GAUGE 18 NOTED, PATENT WITH NO SIGNS OF INFILTRATION. FALL SAFETY MEASURES IMPLEMENTED, BED IN LOWEST POS. LOCKED, WITH CALL LIGHT WITHIN REACH. WILL CONTINUE TO MONITOR.
[2020-12-15] MEDS: LEVOTHYROXINE SODIUM 100 MCG TABLET GT SCH (08:19)
[2020-12-15] MEDS: AMLODIPINE BESYLATE 5 MG TABLET GT SCH (09:00)
[2020-12-15] MEDS: ZINC SULFATE 220 MG CAPSULE GT SCH (09:12)
[2020-12-15] MEDS: FAMOTIDINE (20 MG) 20 MG TABLET GT SCH ×2 (09:14→20:55)
[2020-12-15] MEDS: TAMSULOSIN 0.4 MG CAP.SR.24H GT SCH (09:14)
[2020-12-15] MEDS: SERTRALINE HCL 50 MG TABLET GT SCH ×2 (09:14→17:21)
[2020-12-15] MEDS: ASCORBIC ACID 500 MG TABLET GT SCH (09:14)
[2020-12-15] MEDS: FOLIC ACID 1 MG TABLET GT SCH (09:15)
[2020-12-15] MEDS: Z GUARD REMEDY 2 OZ OINT TP SCH ×2 (09:17→21:01)
[2020-12-15] MEDS: ENOXAPARIN SODIUM 40 MG/0.4 ML DISP.SYRIN SQ SCH (09:18)
[2020-12-15] MEDS: PROSOURCE / PROSTAT (PYXIS) 30 ML UDC GT SCH ×2 (09:26→17:21)
[2020-12-15] MEDS: INSULIN GLARGINE, 100 UNIT/ML CARTRIDGE SQ SCH ×2 (09:30→20:59)
--- NOTE | 2020-12-15 09:42 | NUR ---
TELE/RN NOTES WITHHELD AMLODIPINE DUE TO LOW BP OF 103/56. WILL CONTINUE TO MONITOR.
[2020-12-15] MEDS: LIOTHYRONINE SODIUM (5 MCG/TA 5 MCG TABLET GT SCH (09:52)
[2020-12-15 10:59] VITALS: BP 124/60
[2020-12-15] MEDS: FUROSEMIDE 20 MG/2 ML VIAL IV SCH ×2 (13:07→17:21)
[2020-12-15 13:19] VITALS: BP 104/62
[2020-12-15 17:05] VITALS: BP 120/89
[2020-12-15] MEDS: CEFTRIAXONE 1 G in IV D5W 50 ML IV SCH (17:21)
--- NOTE | 2020-12-15 19:17 | NUR ---
TELE/RN CLOSING NOTES PT IN BED RESTING. PT IS A/OX1-2. PT ABLE TO VERBALIZE NEEDS BY USING GESTURE. PT IS TRACH/VENT. SETTINGS AT AC 10, TV 400, FIO2 40, AND PEEP 5. TOLERATING VENT SETTINGS WELL. COURTNEY CATH NOTED. G-TUBE FLUSHED AND RUNNING GLUCERNA 70 ML/HR. PT TOLERATING WELL. RIGHT SUBCLAVIAN HD CATH NOTED. IV LINE ON LEFT HAND GAUGE 18 NOTED, PATENT WITH NO SIGNS OF INFILTRATION. FALL SAFETY MEASURES IMPLEMENTED, BED IN LOWEST POS. LOCKED, WITH CALL LIGHT WITHIN REACH. WILL ENDORSE TO THE NEXT SHIFT FOR ANYI.
[2020-12-15 20:00] VITALS: BP 119/45
[2020-12-15] MEDS: SENNOSIDES 8.6 MG TABLET GT SCH (21:01)
--- NOTE | 2020-12-15 21:25 | NUR ---
RN NOTES REPORT GIVEN TO LUIS ENRIQUE ZAMORA FOR ANYI. MOLECULAR BIOLOGIST MADE AWARE.
[2020-12-15] MEDS: MICAFUNGIN SODIUM 100 MG in IV NS 0.9% 100 ML IV SCH (22:03)
[2020-12-16] MEDS: IPRATROPIUM NEB FS 0.5 MG/2.5 ML AMPUL.NEB NEB SCH ×4 (01:56→20:00)
[2020-12-16] MEDS: ALBUTEROL FS 2.5 MG/0.5 ML VIAL.NEB NEB SCH ×4 (01:56→20:00)
[2020-12-16 04:00] VITALS: BP 133/75
--- NOTE | 2020-12-16 04:07 | NUR ---
CLOSING NOTES: GOOD BM THIS SHIFT NEEDING 3 PEOPLE TO REPOSITION AND CLEAN SHE HAS NO VOICE BUT WILL MOUTH WORDS FEEDING RAN FOR 20 HOURS OFF 4 HRS DURING THR NIGHT. ASPIRATION D/T THE PEG FEEDINGS. FOLD CLEANED DRIED AND ZGUARD.
[2020-12-16] MEDS: IV 1/2NS 1000 ML 1,000 ML IV PRN ×2 (04:43→18:51)
[2020-12-16 06:53] LABS: CALCIUM, SERUM 10.3 mg/dL (8.5-10.1); CREATININE 1.2 mg/dL (0.6-1.3); MAGNESIUM 2.1 mg/dL (1.8-2.4); PHOSPHORUS 3.3 mg/dL (2.5-4.9); POTASSIUM 3.9 mmol/L (3.5-5.1)
[2020-12-16 07:07] LABS: BASOPHILS % (AUTO) 0.3 % (0.0-2.0); EOSINOPHILS % (AUTO) 5.7 % (0.0-6.0); HEMATOCRIT 27 % (33-45); HEMOGLOBIN 8.9 g/dL (11.5-14.8); LYMPHOCYTES # (AUTO) 1.5 K/uL (0.8-4.8); MEAN CORPUSCULAR HGB CONC 33 g/dl (31.0-36.0); MEAN CORPUSCULAR VOLUME 97 fL (82-100); MONOCYTES # (AUTO) 1.2 K/uL (0.1-1.30); MONOCYTES % (AUTO) 16.2 % (2.0-12.0); NEUTROPHILS # (AUTO) 4.2 K/uL (1.8-8.9); NEUTROPHILS % (AUTO) 57.8 % (43.0-81.0); PLATELET COUNT (AUTO) 203 K/uL (150-450); WHITE BLOOD COUNT (AUTO) 7.3 K/uL (4.3-11.0)
[2020-12-16 08:00] VITALS: BP 140/55
[2020-12-16 09:31] LABS: EOSINOPHILS % (MANUAL) 10 % (0-4); LYMPHOCYTES % (MANUAL) 19 % (16-48); MONOCYTES % (MANUAL) 13 % (0-11.0); NEUTROPHILS % (MANUAL) 58 (42-76)
[2020-12-16] MEDS: ASCORBIC ACID 500 MG TABLET GT SCH (09:41)
[2020-12-16] MEDS: FOLIC ACID 1 MG TABLET GT SCH (09:41)
[2020-12-16] MEDS: FAMOTIDINE (20 MG) 20 MG TABLET GT SCH ×2 (09:41→21:28)
[2020-12-16] MEDS: ZINC SULFATE 220 MG CAPSULE GT SCH (09:41)
[2020-12-16] MEDS: TAMSULOSIN 0.4 MG CAP.SR.24H GT SCH (09:42)
[2020-12-16] MEDS: SERTRALINE HCL 50 MG TABLET GT SCH ×2 (09:42→17:42)
[2020-12-16] MEDS: AMLODIPINE BESYLATE 5 MG TABLET GT SCH (09:42)
[2020-12-16] MEDS: FUROSEMIDE 20 MG/2 ML VIAL IV SCH ×2 (09:43→17:42)
[2020-12-16] MEDS: LIOTHYRONINE SODIUM (5 MCG/TA 5 MCG TABLET GT SCH (09:43)
[2020-12-16] MEDS: LEVOTHYROXINE SODIUM 100 MCG TABLET GT SCH (09:44)
[2020-12-16] MEDS: ENOXAPARIN SODIUM 40 MG/0.4 ML DISP.SYRIN SQ SCH (09:46)
[2020-12-16] MEDS: Z GUARD REMEDY 2 OZ OINT TP SCH ×2 (09:47→21:34)
[2020-12-16] MEDS: PROSOURCE / PROSTAT (PYXIS) 30 ML UDC GT SCH ×2 (09:54→17:42)
[2020-12-16] MEDS: INSULIN GLARGINE, 100 UNIT/ML CARTRIDGE SQ SCH ×2 (10:05→21:40)
[2020-12-16 12:00] VITALS: BP 137/69
[2020-12-16] MEDS ORDERED: MICA100V3 IV (13:16)
[2020-12-16] MEDS ORDERED: CEFT1VIA15 IV (13:16)
[2020-12-16] MEDS ORDERED: FURO-145 PO (13:16)
[2020-12-16] MEDS ORDERED: PAMIDRONATE 90 MG in IV NS 0.9% 500 ML IV ONE (14:00)
[2020-12-16 16:00] VITALS: BP 135/67
--- NOTE | 2020-12-16 17:40 | NUR ---
patient pending discharge. valentin unable to cook pickled meat patient at this time due to unavailable bariatric bed. Manny, case management made aware. per Manny she will arrange for another transportation.
[2020-12-16] MEDS: CEFTRIAXONE 1 G in IV D5W 50 ML IV SCH (17:41)
[2020-12-16] MEDS: GLUCERNA 1.2 1,000 ML BOTTLE GT PRN (17:59)
--- NOTE | 2020-12-16 19:30 | NUR ---
RN OPENING NOTE PATIENT IN BED, OPENS EYES. PATIENT IS A/O X 1-2. PATIENT IS ON [facility] VENT WITH SETTINGS AC 10, TV 400, FIO2 40, AND PEEP 5. TOLERATES VENT SETTINGS. TELE MONITOR READS SR 75 BPM. ABLE TO MOUTH WORDS AT TIMES. PATIENT HAS GLUCERNA 1.2 @ 70 ML/HR. PATIENT HAS A MITCHEL MIDLINE WITH IV FLUIDS ON GOING. SAFETY MEASURES IN PLACE: BED LOCKED AND IN LOWEST POSITION, CALL LIGHT WITHIN REACH, SIDE RAILS UP. WILL MONITOR PATIENT CLOSELY.
--- NOTE | 2020-12-16 19:52 | NUR ---
END OF SHIFT REPORT PATIENT AWAKE IN BED AT THIS TIME. PATIENT REMAINED STABLE THROUGH OUT SHIFT. ALL CARE MEDICATIONS AND TREATMENT ADMINISTERED ANTICIPATED PER ORDER.G-TUBE INTACT, CLEAN AND DRY WITH NO RESIDUAL NOTED. COURTNEY CATHETER IN PLACE, DRAINING TO GRAVITY CLEAR YELLOW URINE OUTPUT. PT REPOSITION Q2H AND PRN. RIGHT CHEST WALL HD CATH INTACT, CLEAN AND DRY. MITCHEL IV ACCESS, INTACT, PATENT AND FLUSHING WELL. PATIENT PENDING DISCHARGE TO [facility]. ALL DISCHARGE INSTRUCTIONS PROVIDED. AND PICTURES TAKEN. REPORT GIVEN TO LUIS ENRIQUE HUERTA AT [facility]. ASPIRATION AND SAFETY PRECAUTIONS IN PLACE AND MAINTAINED AT ALL TIMES. BED IN LOWEST LOCKED POSITION, SIDE RAILS UPX2, HOB ELEVATED, CALL LIGHT AND TABLE WITHIN REACH. ENDORSED TO LUIS ENRIQUE CORRIGAN FOR ANYI
[2020-12-16 20:00] VITALS: BP 127/69
[2020-12-16] MEDS: SENNOSIDES 8.6 MG TABLET GT SCH (21:28)
--- NOTE | 2020-12-16 21:30 | NUR ---
RN NOTE BS 227, 24 UNITS OF LANTUS GIVEN. PATIENT ON TF, WILL MONITOR FOR HYPOGLYCEMIA.
[2020-12-16] MEDS: MICAFUNGIN SODIUM 100 MG in IV NS 0.9% 100 ML IV SCH (21:41)
[2020-12-17] VITALS: BP 130/70
[2020-12-17] MEDS: ALBUTEROL FS 2.5 MG/0.5 ML VIAL.NEB NEB SCH ×4 (00:56→19:56)
[2020-12-17] MEDS: IPRATROPIUM NEB FS 0.5 MG/2.5 ML AMPUL.NEB NEB SCH ×4 (00:56→19:56)
[2020-12-17 04:00] VITALS: BP 127/59
--- NOTE | 2020-12-17 07:30 | NUR ---
RN OPENING NOTE PATIENT IN BED, OPENS EYES. PATIENT IS A/O X 2. PATIENT IS ON MECH VENT WITH SETTINGS AC 10, TV 400, FIO2 40, AND PEEP 5. TOLERATES VENT SETTINGS. ABLE TO MOUTH WORDS AT TIMES. PATIENT HAS GLUCERNA 1.2 @ 70 ML/HR. PATIENT HAS A MITCHEL MIDLINE WITH IV FLUIDS ON GOING. SAFETY MEASURES IN PLACE: BED LOCKED AND IN LOWEST POSITION, CALL LIGHT WITHIN REACH, SIDE RAILS UP. ALL ORDERS CARRIED OUT, ALL NEEDS MET AND ATTENDED. ENDORSED TO DAY SHIFT NURSE FOR ANYI.
[2020-12-17 08:00] VITALS: BP 117/70
[2020-12-17] MEDS: INSULIN GLARGINE, 100 UNIT/ML CARTRIDGE SQ SCH ×2 (09:00→22:00)
[2020-12-17] MEDS: FAMOTIDINE (20 MG) 20 MG TABLET GT SCH ×2 (09:47→21:52)
[2020-12-17] MEDS: TAMSULOSIN 0.4 MG CAP.SR.24H GT SCH (09:47)
[2020-12-17] MEDS: FOLIC ACID 1 MG TABLET GT SCH (09:47)
[2020-12-17] MEDS: AMLODIPINE BESYLATE 5 MG TABLET GT SCH (09:47)
[2020-12-17] MEDS: ZINC SULFATE 220 MG CAPSULE GT SCH (09:47)
[2020-12-17] MEDS: SERTRALINE HCL 50 MG TABLET GT SCH ×2 (09:47→16:30)
[2020-12-17] MEDS: FUROSEMIDE 20 MG/2 ML VIAL IV SCH ×2 (09:48→16:30)
[2020-12-17] MEDS: PROSOURCE / PROSTAT (PYXIS) 30 ML UDC GT SCH ×2 (09:48→16:28)
[2020-12-17] MEDS: ASCORBIC ACID 500 MG TABLET GT SCH (09:48)
[2020-12-17] MEDS: LEVOTHYROXINE SODIUM 100 MCG TABLET GT SCH (09:48)
[2020-12-17] MEDS: Z GUARD REMEDY 2 OZ OINT TP SCH ×2 (09:49→21:56)
[2020-12-17] MEDS: ENOXAPARIN SODIUM 40 MG/0.4 ML DISP.SYRIN SQ SCH (09:49)
[2020-12-17] MEDS: LIOTHYRONINE SODIUM (5 MCG/TA 5 MCG TABLET GT SCH (10:04)
[2020-12-17] MEDS: IV 1/2NS 1000 ML 1,000 ML IV PRN (10:26)
[2020-12-17] MEDS: ACETAMINOPHEN 650 MG/20.3 ML UDC GT PRN ×2 (11:50→17:58)
--- NOTE | 2020-12-17 11:50 | NUR ---
rn notes T-103F ADMINISTERED TYLENOL VIA GT,AND COOLING MEASURE, HOSPITALIST NOTIFIED.
[2020-12-17 12:00] VITALS: BP 122/76
--- NOTE | 2020-12-17 12:14 | NUR ---
RN NOTES GET NEW ORDER FROM HOSPITALIST BLOOD CULTURE X2, AND CANCEL DISCHARGE ORDER. ORDER TAKEN AND CARRIED OUT.
[2020-12-17 16:00] VITALS: BP 126/69
[2020-12-17] MEDS: IV NS 0.9% 1,000 ML IV SCH (16:27)
[2020-12-17] MEDS: CEFTRIAXONE 1 G in IV D5W 50 ML IV SCH (16:31)
[2020-12-17] MEDS: GLUCERNA 1.2 1,000 ML BOTTLE GT PRN (16:38)
--- NOTE | 2020-12-17 18:04 | NUR ---
rn notes administered tylenol 650 ml via gt, t-102.8F, pm care done, due medication administered, suction , mouth care done. Edouard draining via gravity with sediments.Patient obese cleaned, and reposition with 5 nurses help. call light within to reach, feeding tolerating well, no residual. call light within to reach. will follow up. endorsed oncoming nurse follow plan of care.
--- NOTE | 2020-12-17 19:26 | NUR ---
CONTINUITY OF CARE Patient in bed awake. Trach intact. Sinus rhythm in the Tele monitor. Temp elevated 100.9F Cooling measure given. Turned and repositioned. IVF infusing. Edouard cath to gravity, urine yellow and cloudy. Gtube feeding at 70ml/hr. Maintained upright posture. Fall precaution maintained.
--- NOTE | 2020-12-17 20:34 | NUR ---
RT NOTE [facility] ON ORDERED SETTINGS. VENT IS PLUGGED INTO RED OUTLET W BMV AND SPARE TRACH @ HOB. PT IS AWAKE AND ALERT. TRACH IS PATENT AND SECURE. ALARMS SET AND AUDIBLE. NO RESP DISTRESS NOTED @ THIS TIME. WILL CONTINUE TO MONITOR.
[2020-12-17 20:52] VITALS: BP 102/54
[2020-12-17] MEDS: SENNOSIDES 8.6 MG TABLET GT SCH (21:52)
--- NOTE | 2020-12-17 22:01 | NUR ---
INSULIN Blood sugar 243mg/dl, no parameters orders. Lantus insulin 24 units given co-signed by LUIS ENRIQUE Diop.
[2020-12-17] MEDS: MICAFUNGIN SODIUM 100 MG in IV NS 0.9% 100 ML IV SCH (22:15)
[2020-12-18 01:05] VITALS: BP 135/61
[2020-12-18] MEDS: ALBUTEROL FS 2.5 MG/0.5 ML VIAL.NEB NEB SCH ×4 (02:29→20:10)
[2020-12-18] MEDS: IPRATROPIUM NEB FS 0.5 MG/2.5 ML AMPUL.NEB NEB SCH ×4 (02:29→20:09)
[2020-12-18 04:32] VITALS: BP 109/68
[2020-12-18] MEDS: IV NS 0.9% 1,000 ML IV SCH ×3 (04:41→20:54)
[2020-12-18] MEDS: ACETAMINOPHEN 650 MG/20.3 ML UDC GT PRN (05:02)
--- NOTE | 2020-12-18 06:28 | NUR ---
END OF SHIFT REPORT Patient is A/O x1-2. Confused. Sinus rhythm in the Tele monitor HR 92. On IV abx. On and off fever, cooling measure given, medicated with Tylenol. Blood cx pending result. Tolerating tube feeding, minimal gastric residual. Maintained upright posture, turned and repositioned. Had BM this shift. PCR test pending result. Edouard catheter care done, good urine output. Will endorse to oncoming RN.
[2020-12-18 06:29] LABS: BASOPHILS % (AUTO) 0.3 % (0.0-2.0); EOSINOPHILS % (AUTO) 2.6 % (0.0-6.0); HEMATOCRIT 28 % (33-45); HEMOGLOBIN 9.4 g/dL (11.5-14.8); LYMPHOCYTES # (AUTO) 0.8 K/uL (0.8-4.8); LYMPHOCYTES % (AUTO) 9.8 % (20.0-44.0); MEAN CORPUSCULAR HGB CONC 33 g/dl (31.0-36.0); MEAN CORPUSCULAR VOLUME 97 fL (82-100); MONOCYTES # (AUTO) 0.6 K/uL (0.1-1.30); MONOCYTES % (AUTO) 6.8 % (2.0-12.0); NEUTROPHILS # (AUTO) 6.9 K/uL (1.8-8.9); NEUTROPHILS % (AUTO) 80.5 % (43.0-81.0); PLATELET COUNT (AUTO) 185 K/uL (150-450); RED BLOOD CELL COUNT(AUTO) 2.92 MIL/uL (4.0-5.2); WHITE BLOOD COUNT (AUTO) 8.6 K/uL (4.3-11.0)
[2020-12-18 07:09] LABS: ALBUMIN 2.3 g/dL (3.4-5.0); BILIRUBIN,TOTAL 0.2 mg/dL (0.2-1.0); CALCIUM, SERUM 9.4 mg/dL (8.5-10.1); CREATININE 1.3 mg/dL (0.6-1.3); PHOSPHORUS 2.8 mg/dL (2.5-4.9); POTASSIUM 3.7 mmol/L (3.5-5.1); TOTAL PROTEIN, SERUM 7.3 g/dL (6.4-8.2)
--- NOTE | 2020-12-18 07:23 | NUR ---
cable television technician note patient in baed with trach to vent setting as ordered, , with g tube feeding as ordered , keep hob elevated at all time, on tele monitor sr hr 95, on ivf as ordered, bed in lowest and locked position , will cont to monitor , call light within reach
[2020-12-18 08:00] VITALS: BP 108/47
[2020-12-18] MEDS: PROSOURCE / PROSTAT (PYXIS) 30 ML UDC GT SCH ×2 (09:00→16:20)
[2020-12-18] MEDS: AMLODIPINE BESYLATE 5 MG TABLET GT SCH (09:06)
[2020-12-18] MEDS: ZINC SULFATE 220 MG CAPSULE GT SCH (09:07)
[2020-12-18] MEDS: TAMSULOSIN 0.4 MG CAP.SR.24H GT SCH (09:07)
[2020-12-18] MEDS: FAMOTIDINE (20 MG) 20 MG TABLET GT SCH ×2 (09:07→20:46)
[2020-12-18] MEDS: FOLIC ACID 1 MG TABLET GT SCH (09:07)
[2020-12-18] MEDS: SERTRALINE HCL 50 MG TABLET GT SCH ×2 (09:07→16:20)
[2020-12-18] MEDS: ASCORBIC ACID 500 MG TABLET GT SCH (09:07)
[2020-12-18] MEDS: FUROSEMIDE 20 MG/2 ML VIAL IV SCH ×2 (09:08→16:20)
[2020-12-18] MEDS: ENOXAPARIN SODIUM 40 MG/0.4 ML DISP.SYRIN SQ SCH (09:09)
[2020-12-18] MEDS: INSULIN GLARGINE, 100 UNIT/ML CARTRIDGE SQ SCH ×2 (09:16→20:50)
[2020-12-18] MEDS: LIOTHYRONINE SODIUM (5 MCG/TA 5 MCG TABLET GT SCH (09:17)
[2020-12-18] MEDS: LEVOTHYROXINE SODIUM 100 MCG TABLET GT SCH (09:19)
[2020-12-18] MEDS: Z GUARD REMEDY 2 OZ OINT TP SCH ×2 (09:25→20:47)
[2020-12-18] MEDS: GLUCERNA 1.2 1,000 ML BOTTLE GT PRN (09:27)
--- NOTE | 2020-12-18 10:00 | NUR ---
HIGHWAY PATROL PILOT NOTE UA COLLECTED ORDERED
[2020-12-18 12:00] VITALS: BP 125/57
[2020-12-18] MEDS ORDERED: VANCOMYCIN 1.5 GM in IV D5W 500 ML IV ONE (12:00)
[2020-12-18] MEDS ORDERED: MEROPENEM 500 MG in IV NS 0.9% 50 ML IV SCH (13:00)
[2020-12-18] MEDS: MEROPENEM 1 G in IV NS 0.9% 100 ML IV SCH ×2 (13:14→20:46)
--- NOTE | 2020-12-18 15:13 | NUR ---
RADIATION PROTECTION ENGINEER NOTE ROUNDS MADE M ALL NEEDS ATTENDED CONT WITH VENT SETTING ANDG TUBE FEEDING , KEEP CLEAN DRY , WILL MONITOR Addendum: 12/18/20 at 1528 by RICH ROSS RN DR BASURTO AT BEDSIDE UPDATED PATIENT CONDITION
[2020-12-18 16:00] VITALS: BP 107/52
--- NOTE | 2020-12-18 18:38 | NUR ---
HANDLE SEWER NOTE PATIENT IN BED WITH TRACH TO VENT SETTING ORDERED WITH COURTNEY CATH TO GRAVITY , ON G TUBE FEEDING ORDERDD NOT IN DISTRESS, WILL MONITOR
--- NOTE | 2020-12-18 19:30 | NUR ---
RN NOTE RECEIVED PATIENT IN BED. A/OX 1-2. ON MECHANICAL VENT, AC 10, TV 400 FIO2 40% PEEP 5. NO RESPIRATORY DISTRESS. NO C/O PAIN AT THIS TIME. TELE MONITOR READS SINUS RHYTHM HR 91. IN NO APPARENT DISTRESS. IV ACCESS IN MITCHEL MIDLINE RUNNING NS@100ML/HR. RIGHT CHEST WALL HD CATH. GTUBE PRESENT, NO RESIDUAL, FEEDING RUNNING GLUCERNA @70ml/hr. COURTNEY CATHETER OS PRESENT, DRAINING TO GRAVITY. BED IS LOW AND LOCKED, HOB ELEVATED IN SEMI FOWLERS, SIDE RIAL SUP X2, CALL LIGHT WITHIN REACH. WILL CONTINUE TO MONITOR THROUGHOUT SHIFT.
[2020-12-18 20:00] VITALS: BP 113/62
[2020-12-18] MEDS: MICAFUNGIN SODIUM 100 MG in IV NS 0.9% 100 ML IV SCH (21:30)
[2020-12-18] MEDS: SENNOSIDES 8.6 MG TABLET GT SCH (21:30)
[2020-12-19] VITALS: BP 130/56
[2020-12-19] MEDS: ACETAMINOPHEN 650 MG/20.3 ML UDC GT PRN (00:59)
[2020-12-19 02:23] LABS: BILIRUBIN,URINE NEGATIVE (NEGATIVE); COLOR,URINE YELLOW (YELLOW); LEUKOCYTE ESTERASE ,URINE MODERATE (NEGATIVE); NITRITE, URINE POSITIVE (NEGATIVE); PROTEIN,URINE 30 mg/dl (NEGATIVE); UGLUCOSE 250 MG/DL mg/dL (NEGATIVE); UROBILINOGEN,URINE 0.2 EU/dL (0.2)
[2020-12-19] MEDS: IPRATROPIUM NEB FS 0.5 MG/2.5 ML AMPUL.NEB NEB SCH ×4 (02:25→20:22)
[2020-12-19] MEDS: ALBUTEROL FS 2.5 MG/0.5 ML VIAL.NEB NEB SCH ×4 (02:25→20:22)
[2020-12-19 02:59] LABS: BACTERIA,URINE Many /HPF (None Seen); COARSE GRANULAR CASTS,URINE Few /LPF (None Seen); RBC,URINE 21-50 /HPF (0-2); SQUAMOUS EPITHELIAL CELL,UR Moderate /HPF (None Seen); URIC ACID CRYSTALS,URINE Moderate /HPF (None Seen); WBC,URINE 81-100 /HPF (0-3)
[2020-12-19 04:00] VITALS: BP 102/46
--- NOTE | 2020-12-19 04:17 | NUR ---
RN NOTE PATIENT REFUSED TO HAVE PHOTOS TAKEN PER PROTOCOL QSUNDAY.
[2020-12-19] MEDS: GLUCERNA 1.2 1,000 ML BOTTLE GT PRN ×2 (04:18→16:07)
[2020-12-19] MEDS: MEROPENEM 1 G in IV NS 0.9% 100 ML IV SCH ×3 (04:23→21:10)
[2020-12-19] MEDS: VANCOMYCIN 1.25 GM in IV D5W 250 ML IV SCH (05:44)
[2020-12-19 06:50] LABS: BASOPHILS % (AUTO) 0.4 % (0.0-2.0); EOSINOPHILS % (AUTO) 4.9 % (0.0-6.0); HEMATOCRIT 30 % (33-45); HEMOGLOBIN 9.6 g/dL (11.5-14.8); LYMPHOCYTES # (AUTO) 1.2 K/uL (0.8-4.8); LYMPHOCYTES % (AUTO) 15.1 % (20.0-44.0); MEAN CORPUSCULAR HGB CONC 33 g/dl (31.0-36.0); MEAN CORPUSCULAR VOLUME 98 fL (82-100); MONOCYTES # (AUTO) 0.6 K/uL (0.1-1.30); MONOCYTES % (AUTO) 7.5 % (2.0-12.0); NEUTROPHILS # (AUTO) 5.5 K/uL (1.8-8.9); NEUTROPHILS % (AUTO) 72.1 % (43.0-81.0); PLATELET COUNT (AUTO) 185 K/uL (150-450); RED BLOOD CELL COUNT(AUTO) 3.02 MIL/uL (4.0-5.2); WHITE BLOOD COUNT (AUTO) 7.7 K/uL (4.3-11.0)
--- NOTE | 2020-12-19 06:51 | NUR ---
RN NOTE PATIENT RESTING IN BED. A/OX 1-2. ON MECHANICAL VENT,NO CHANGES IN SETTINGS. NO RESPIRATORY DISTRESS. NO C/O PAIN. TELE IS SINUS RHYTHM. NO DISTRESS. IV IN MITCHEL MIDLINE RUNNING NS@100ML/HR. RIGHT CHEST WALL HD CATH. GTUBE RUNNING GLUCERNA @70ml/hr. COURTNEY CATHETER OUTPUT 800. BED REMAINS LOW AND LOCKED, HOB ELEVATED IN SEMI FOWLERS, SIDE RIAL SUP X2, CALL LIGHT WITHIN REACH. WILL ENDORSE TO ONCOMING SHIFT.
[2020-12-19 07:14] LABS: CALCIUM, SERUM 8.9 mg/dL (8.5-10.1); CREATININE 1.2 mg/dL (0.6-1.3); MAGNESIUM 2.1 mg/dL (1.8-2.4); PHOSPHORUS 2.4 mg/dL (2.5-4.9); POTASSIUM 3.8 mmol/L (3.5-5.1)
--- NOTE | 2020-12-19 07:20 | NUR ---
RN OPENING NOTE Pt is Awake, responsive to stimuli, on mechanical vent tolerating well settings. No respiratory distress, no SOB. Enteral feeding running, hydration IV running. Safety precautions implemented, bed locked in lowest position, call light within reach.
[2020-12-19 08:00] VITALS: BP 105/37
[2020-12-19] MEDS: PROSOURCE / PROSTAT (PYXIS) 30 ML UDC GT SCH ×2 (08:06→16:05)
[2020-12-19] MEDS: LIOTHYRONINE SODIUM (5 MCG/TA 5 MCG TABLET GT SCH (08:24)
[2020-12-19] MEDS: FAMOTIDINE (20 MG) 20 MG TABLET GT SCH ×2 (08:24→21:10)
[2020-12-19] MEDS: FOLIC ACID 1 MG TABLET GT SCH (08:25)
[2020-12-19] MEDS: ENOXAPARIN SODIUM 40 MG/0.4 ML DISP.SYRIN SQ SCH (08:25)
[2020-12-19] MEDS: LEVOTHYROXINE SODIUM 100 MCG TABLET GT SCH (08:27)
[2020-12-19] MEDS: SERTRALINE HCL 50 MG TABLET GT SCH ×2 (08:27→16:05)
[2020-12-19] MEDS: ASCORBIC ACID 500 MG TABLET GT SCH (08:27)
[2020-12-19] MEDS: TAMSULOSIN 0.4 MG CAP.SR.24H GT SCH (08:28)
[2020-12-19] MEDS: ZINC SULFATE 220 MG CAPSULE GT SCH (08:28)
[2020-12-19] MEDS: FUROSEMIDE 20 MG/2 ML VIAL IV SCH ×2 (08:29→16:06)
[2020-12-19] MEDS: AMLODIPINE BESYLATE 5 MG TABLET GT SCH (08:31)
[2020-12-19] MEDS: INSULIN GLARGINE, 100 UNIT/ML CARTRIDGE SQ SCH ×2 (08:35→21:35)
[2020-12-19] MEDS: Z GUARD REMEDY 2 OZ OINT TP SCH ×2 (08:46→21:10)
[2020-12-19 12:00] VITALS: BP 119/56
[2020-12-19] MEDS ORDERED: NEUTRA PHOS 1 POWD.PACKET GT ONE (12:00)
[2020-12-19 16:00] VITALS: BP 119/56
[2020-12-19] MEDS: IV NS 0.9% 1,000 ML IV PRN (16:07)
--- NOTE | 2020-12-19 19:24 | NUR ---
RN CLOSING NOTE Pt is A/O X 2 with periods of disorientation and confusion stating she can see her kids playing on the hallway. Reorientation ineffective. On mechanical vent tolerating settings well. No fever, no cough, no hematuria. Safety precautions implemented, bed locked in lowest position, call light within reach. AM/PM care rendered, wound care rendered.
[2020-12-19 20:00] VITALS: BP 102/52
--- NOTE | 2020-12-19 20:00 | NUR ---
RN NOTE RECEIVED PATIENT IN BED. A/OX 1-2. ON MECHANICAL VENT, AC 10, TV 400 FIO2 40% PEEP 5. NO RESPIRATORY DISTRESS. NO C/O PAIN AT THIS TIME. TELE MONITOR READS SINUS RHYTHM HR 92. IN NO APPARENT DISTRESS. IV ACCESS IN MITCHEL MIDLINE RUNNING NS@100ML/HR. RIGHT CHEST WALL HD CATH PRESENT. GTUBE PRESENT, NO RESIDUAL, FEEDING RUNNING GLUCERNA @70MLL/HR. COURTNEY CATHETER OS PRESENT, DRAINING TO GRAVITY, URINE IS YELLOW AND CLOUDY. BED IS LOW AND LOCKED, HOB ELEVATED IN SEMI FOWLERS, SIDE RIALS UP X2, CALL LIGHT WITHIN REACH. WILL CONTINUE TO MONITOR THROUGHOUT SHIFT.
[2020-12-19] MEDS: SENNOSIDES 8.6 MG TABLET GT SCH (21:10)
[2020-12-19] MEDS: MICAFUNGIN SODIUM 100 MG in IV NS 0.9% 100 ML IV SCH (21:49)
[2020-12-20] VITALS: BP 111/41
[2020-12-20] MEDS: VANCOMYCIN 1.25 GM in IV D5W 250 ML IV SCH ×2 (00:17→18:00)
[2020-12-20] MEDS: IPRATROPIUM NEB FS 0.5 MG/2.5 ML AMPUL.NEB NEB SCH ×4 (01:30→19:38)
[2020-12-20] MEDS: ALBUTEROL FS 2.5 MG/0.5 ML VIAL.NEB NEB SCH ×4 (01:30→19:38)
[2020-12-20 04:00] VITALS: BP 105/67
[2020-12-20] MEDS: MEROPENEM 1 G in IV NS 0.9% 100 ML IV SCH ×3 (04:54→21:43)
--- NOTE | 2020-12-20 07:13 | NUR ---
RN OPENING NOTE Pt is awake, A/O X 2 with periods of disorientation, on mechanical vent tolerating settings. No respiratory distress, no SOB. HOB remains elevated. Enteral feeding ongoing, F/C patent. Running hydration IV NS, site with no s/sx of infiltration. Safety precautions implemented, bed locked in lowest position, call light within reach.
[2020-12-20 07:17] LABS: CALCIUM, SERUM 8.9 mg/dL (8.5-10.1); CREATININE 1.1 mg/dL (0.6-1.3); MAGNESIUM 2.1 mg/dL (1.8-2.4); PHOSPHORUS 2.3 mg/dL (2.5-4.9); POTASSIUM 4.1 mmol/L (3.5-5.1)
[2020-12-20 07:28] LABS: BASOPHILS % (AUTO) 0.4 % (0.0-2.0); EOSINOPHILS % (AUTO) 4.6 % (0.0-6.0); HEMATOCRIT 29 % (33-45); HEMOGLOBIN 9.5 g/dL (11.5-14.8); LYMPHOCYTES % (AUTO) 11.9 % (20.0-44.0); MEAN CORPUSCULAR HGB CONC 33 g/dl (31.0-36.0); MEAN CORPUSCULAR VOLUME 96 fL (82-100); MONOCYTES # (AUTO) 0.6 K/uL (0.1-1.30); MONOCYTES % (AUTO) 7.9 % (2.0-12.0); NEUTROPHILS # (AUTO) 6.2 K/uL (1.8-8.9); NEUTROPHILS % (AUTO) 75.2 % (43.0-81.0); PLATELET COUNT (AUTO) 232 K/uL (150-450); RED BLOOD CELL COUNT(AUTO) 3.02 MIL/uL (4.0-5.2); WHITE BLOOD COUNT (AUTO) 8.2 K/uL (4.3-11.0)
[2020-12-20 08:00] VITALS: BP 107/52
[2020-12-20] MEDS: LIOTHYRONINE SODIUM (5 MCG/TA 5 MCG TABLET GT SCH (08:43)
[2020-12-20] MEDS: FUROSEMIDE 20 MG/2 ML VIAL IV SCH ×2 (08:43→17:06)
[2020-12-20] MEDS: LEVOTHYROXINE SODIUM 100 MCG TABLET GT SCH (08:43)
[2020-12-20] MEDS: FOLIC ACID 1 MG TABLET GT SCH (08:44)
[2020-12-20] MEDS: ASCORBIC ACID 500 MG TABLET GT SCH (08:44)
[2020-12-20] MEDS: FAMOTIDINE (20 MG) 20 MG TABLET GT SCH ×2 (08:45→21:44)
[2020-12-20] MEDS: SERTRALINE HCL 50 MG TABLET GT SCH ×2 (08:45→17:05)
[2020-12-20] MEDS: TAMSULOSIN 0.4 MG CAP.SR.24H GT SCH (08:46)
[2020-12-20] MEDS: GLUCERNA 1.2 1,000 ML BOTTLE GT PRN (08:46)
[2020-12-20] MEDS: IV NS 0.9% 1,000 ML IV PRN (08:46)
[2020-12-20] MEDS: ZINC SULFATE 220 MG CAPSULE GT SCH (08:46)
[2020-12-20] MEDS: ENOXAPARIN SODIUM 40 MG/0.4 ML DISP.SYRIN SQ SCH (08:48)
[2020-12-20] MEDS: AMLODIPINE BESYLATE 5 MG TABLET GT SCH (08:51)
[2020-12-20] MEDS: Z GUARD REMEDY 2 OZ OINT TP SCH ×2 (08:51→21:44)
[2020-12-20] MEDS: PROSOURCE / PROSTAT (PYXIS) 30 ML UDC GT SCH ×2 (08:53→17:04)
[2020-12-20] MEDS: INSULIN GLARGINE, 100 UNIT/ML CARTRIDGE SQ SCH ×2 (09:02→22:01)
[2020-12-20 12:00] VITALS: BP 113/53
[2020-12-20] MEDS ORDERED: NEUTRA PHOS 1 POWD.PACKET NG ONE (14:00)
[2020-12-20] MEDS: ACETAMINOPHEN 650 MG/20.3 ML UDC GT PRN (15:51)
[2020-12-20 16:15] VITALS: BP 116/50
--- NOTE | 2020-12-20 18:45 | NUR ---
RN CLOSING NOTES Patient is A/O X 2 with periods of disorientation, on mechanical vent tolerating settings well. No respiratory distress, no SOB. Sinus rhythm. F/C patent, AM/PM care rendered. Enteral feeding running Glucerna 1.2 @70CC/HR. no residual noted. B/S 276 mg/dl. Lantus given as ordered. IV hydration running 100cc/hr. Wound care rendered. Vanco trough 30, vanco dose held per parameters. Had fever 100.4 1551, tylenol given as ordered. Safety precautions implemented, bed locked in lowest position, call light within reach. Spoke with son updated.
--- NOTE | 2020-12-20 19:30 | NUR ---
RN NOTE PT RECEIVED IN BED. PT IS TRACH/VENT. SETTINGS AT S#8, AC 10, TV 400, FIO2 40, AND PEEP 5. TOLERATING VENT SETTINGS WELL WITH OXYGEN SATURATION >98%. PT IS A/0X2, BUT ABLE TO MOUTH WORDS. PT ON TELE MONITOR SHOWING NSR. COURTNEY CATH NOTED. G-TUBE FLUSHED WITH NO RESIDUAL. GLUCERNA 1.2 RUNNING AT 70 ML/HR. PT TOLERATING WELL. RIGHT SUBCLAVIAN HD CATH NOTED. IV LINE ON LEFT HAND #18 NOTED. FLUSHED, PATENT AND INTACT WITH NO INFILTRATION. ALL SAFETY MEASURES IMPLEMENTED. CALL LIGHT WITHIN REACH. BED ALARM ON. BED LOCKED AND IN LOWEST POSITION. WILL CONTINUE TO MONITOR AND ASSESS FOR ANY CHANGES.
[2020-12-20 20:00] VITALS: BP 104/40
[2020-12-20] MEDS: SENNOSIDES 8.6 MG TABLET GT SCH (21:44)
[2020-12-20] MEDS: MICAFUNGIN SODIUM 100 MG in IV NS 0.9% 100 ML IV SCH (22:47)
[2020-12-21] VITALS: BP 125/65
[2020-12-21] MEDS: ALBUTEROL FS 2.5 MG/0.5 ML VIAL.NEB NEB SCH ×4 (01:40→19:39)
[2020-12-21] MEDS: IPRATROPIUM NEB FS 0.5 MG/2.5 ML AMPUL.NEB NEB SCH ×4 (01:40→19:39)
[2020-12-21] MEDS: IV NS 0.9% 1,000 ML IV PRN (03:40)
[2020-12-21] MEDS: GLUCERNA 1.2 1,000 ML BOTTLE GT PRN (03:45)
[2020-12-21 04:00] VITALS: BP 136/73
[2020-12-21] MEDS: MEROPENEM 1 G in IV NS 0.9% 100 ML IV SCH ×3 (05:59→21:05)
--- NOTE | 2020-12-21 06:40 | NUR ---
RN NOTE NO CHANGES IN PT CONDITION DURING SHIFT. PT IS TRACH/VENT. SETTINGS AT S#8, AC 10, TV 400, FIO2 40, AND PEEP 5. TOLERATING VENT SETTINGS WELL WITH OXYGEN SATURATION >98%. PT ON TELE MONITOR SHOWING NSR. GLUCERNA 1.2 RUNNING AT 70 ML/HR. PT TOLERATING WELL. RIGHT SUBCLAVIAN HD CATH NOTED. IV LINE ON LEFT HAND #18 NOTED. FLUSHED, PATENT AND INTACT WITH NO INFILTRATION. ALL DUE MEDS GIVEN ORDERED. PT KEPT CLEAN AND COMFORTABLE. ALL SAFETY MEASURES IMPLEMENTED. CALL LIGHT WITHIN REACH. BED ALARM ON. BED LOCKED AND IN LOWEST POSITION. WILL ENDORSE TO MORNING SHIFT RN FOR ANYI.
[2020-12-21 06:43] LABS: BASOPHILS % (AUTO) 0.2 % (0.0-2.0); EOSINOPHILS % (AUTO) 4.7 % (0.0-6.0); HEMATOCRIT 30 % (33-45); HEMOGLOBIN 9.5 g/dL (11.5-14.8); LYMPHOCYTES # (AUTO) 1.1 K/uL (0.8-4.8); LYMPHOCYTES % (AUTO) 11.3 % (20.0-44.0); MEAN CORPUSCULAR HGB CONC 32 g/dl (31.0-36.0); MEAN CORPUSCULAR VOLUME 98 fL (82-100); MONOCYTES # (AUTO) 0.7 K/uL (0.1-1.30); MONOCYTES % (AUTO) 7.3 % (2.0-12.0); NEUTROPHILS # (AUTO) 7.5 K/uL (1.8-8.9); NEUTROPHILS % (AUTO) 76.5 % (43.0-81.0); PLATELET COUNT (AUTO) 269 K/uL (150-450); RED BLOOD CELL COUNT(AUTO) 3.04 MIL/uL (4.0-5.2); WHITE BLOOD COUNT (AUTO) 9.8 K/uL (4.3-11.0)
[2020-12-21 07:01] LABS: CALCIUM, SERUM 8.7 mg/dL (8.5-10.1); CREATININE 0.9 mg/dL (0.6-1.3); MAGNESIUM 2.1 mg/dL (1.8-2.4); PHOSPHORUS 2.3 mg/dL (2.5-4.9); POTASSIUM 4.1 mmol/L (3.5-5.1)
[2020-12-21 08:00] VITALS: BP 118/74
[2020-12-21] MEDS: ZINC SULFATE 220 MG CAPSULE GT SCH (08:30)
[2020-12-21] MEDS: ASCORBIC ACID 500 MG TABLET GT SCH (08:30)
[2020-12-21] MEDS: LIOTHYRONINE SODIUM (5 MCG/TA 5 MCG TABLET GT SCH (08:30)
[2020-12-21] MEDS: FOLIC ACID 1 MG TABLET GT SCH (08:30)
[2020-12-21] MEDS: LEVOTHYROXINE SODIUM 100 MCG TABLET GT SCH (08:31)
[2020-12-21] MEDS: SERTRALINE HCL 50 MG TABLET GT SCH ×2 (08:31→17:18)
[2020-12-21] MEDS: FUROSEMIDE 20 MG/2 ML VIAL IV SCH ×2 (08:31→17:17)
[2020-12-21] MEDS: FAMOTIDINE (20 MG) 20 MG TABLET GT SCH ×2 (08:31→21:04)
[2020-12-21] MEDS: ENOXAPARIN SODIUM 40 MG/0.4 ML DISP.SYRIN SQ SCH (08:32)
[2020-12-21] MEDS: AMLODIPINE BESYLATE 5 MG TABLET GT SCH (08:39)
[2020-12-21] MEDS: TAMSULOSIN 0.4 MG CAP.SR.24H GT SCH (08:39)
[2020-12-21] MEDS: INSULIN GLARGINE, 100 UNIT/ML CARTRIDGE SQ SCH ×2 (08:52→21:24)
[2020-12-21] MEDS: Z GUARD REMEDY 2 OZ OINT TP SCH ×2 (09:00→21:05)
[2020-12-21] MEDS: PROSOURCE / PROSTAT (PYXIS) 30 ML UDC GT SCH ×2 (10:00→17:20)
--- NOTE | 2020-12-21 11:17 | NUR ---
WOUND CARE CONSULT: PT FOLLOWED BY SURGICAL TEAM FOR SACRAL SCARRING, PRESENT ON ADMISSION. DEFER TO SURGICAL AND PODIATRY TEAMS FOR WOUND TREATMENT PLAN. PT IS ON [facility] E[facility] AIR BED. WILL SEE PRN. SKIN PROTECTION MEASURES IN PLACE AND DISCUSSED WITH NURSING STAFF.
[2020-12-21 12:00] VITALS: BP 116/68
[2020-12-21] MEDS ORDERED: VANCOMYCIN 1.25 GM in IV D5W 250 ML IV SCH (12:00)
[2020-12-21] MEDS ORDERED: Sodium Phosphate 30 MMOL in IV NS 0.9% 250 ML IV SCH (12:30)
[2020-12-21] MEDS ORDERED: LINEZOLID 600 MG TABLET PO SCH (13:00)
[2020-12-21] MEDS: LINEZOLID 600 MG TABLET GT SCH ×2 (13:55→21:04)
[2020-12-21 16:00] VITALS: BP 134/70
--- NOTE | 2020-12-21 18:33 | NUR ---
per mitra cm patient will be discharge tomorrow since no bariatric bed ambulance available.
--- NOTE | 2020-12-21 18:45 | NUR ---
RN CLOSING NOTES PT STABLE ON VENT AND SAT 100%. TUBE FEEDINGS @70CC. PT WILL BE DISCHARGED 12/22. WILL CONTINUE TO MONITOR. VANCO TROUGH >30. VANCO DISCONTINUED
[2020-12-21 20:00] VITALS: BP 123/63
[2020-12-21] MEDS: SENNOSIDES 8.6 MG TABLET GT SCH (21:05)
[2020-12-21] MEDS: MICAFUNGIN SODIUM 100 MG in IV NS 0.9% 100 ML IV SCH (22:46)
[2020-12-22] VITALS: BP 137/68
[2020-12-22] MEDS: ALBUTEROL FS 2.5 MG/0.5 ML VIAL.NEB NEB SCH ×3 (01:38→14:14)
[2020-12-22] MEDS: IPRATROPIUM NEB FS 0.5 MG/2.5 ML AMPUL.NEB NEB SCH ×3 (01:38→14:14)
[2020-12-22 04:00] VITALS: BP 128/56
[2020-12-22] MEDS: MEROPENEM 1 G in IV NS 0.9% 100 ML IV SCH ×2 (04:36→12:29)
[2020-12-22] MEDS: GLUCERNA 1.2 1,000 ML BOTTLE GT PRN (05:31)
[2020-12-22 07:12] LABS: CALCIUM, SERUM 8.3 mg/dL (8.5-10.1); CREATININE 0.8 mg/dL (0.6-1.3); POTASSIUM 3.9 mmol/L (3.5-5.1)
--- NOTE | 2020-12-22 07:25 | NUR ---
RN CLOSING NOTE PT WAS STABLE THROUGHOUT SHIFT, REMAINS ON SAME VENT SETTINGS, TOLERATING WELL NO DISTRESS NOTED. BED BATH DONE, WOUND CARE DONE,T/R Q2H ALL NEEDS ATTENDED, GT RUNNING ORDERED. IVF RUNNING ORDERED. PT DENIES PAIN. ALL MEDS ADMINISTERED ORDERED. SAFETY MEASURES IN PLACE. HOB ELEVATED. SIDE RAILS UP X2, BED LOCKED IN LOWEST POSITION WITH BED ALARM ON. PT REMAINS WITH IV INTACT. REPORT GIVEN TO DAY SHIFT RN FOR CONTINUATION OF CARE
[2020-12-22 08:00] VITALS: BP 117/86
[2020-12-22] MEDS: Z GUARD REMEDY 2 OZ OINT TP SCH (09:00)
[2020-12-22] MEDS: FUROSEMIDE 20 MG/2 ML VIAL IV SCH (09:09)
[2020-12-22] MEDS: ZINC SULFATE 220 MG CAPSULE GT SCH (09:10)
[2020-12-22] MEDS: TAMSULOSIN 0.4 MG CAP.SR.24H GT SCH (09:10)
[2020-12-22] MEDS: ASCORBIC ACID 500 MG TABLET GT SCH (09:10)
[2020-12-22] MEDS: AMLODIPINE BESYLATE 5 MG TABLET GT SCH (09:10)
[2020-12-22] MEDS: FOLIC ACID 1 MG TABLET GT SCH (09:10)
[2020-12-22] MEDS: LINEZOLID 600 MG TABLET GT SCH (09:10)
[2020-12-22] MEDS: SERTRALINE HCL 50 MG TABLET GT SCH (09:11)
[2020-12-22] MEDS: LIOTHYRONINE SODIUM (5 MCG/TA 5 MCG TABLET GT SCH (09:11)
[2020-12-22] MEDS: FAMOTIDINE (20 MG) 20 MG TABLET GT SCH (09:11)
[2020-12-22] MEDS: ENOXAPARIN SODIUM 40 MG/0.4 ML DISP.SYRIN SQ SCH (09:16)
[2020-12-22] MEDS: PROSOURCE / PROSTAT (PYXIS) 30 ML UDC GT SCH (09:16)
[2020-12-22] MEDS: LEVOTHYROXINE SODIUM 100 MCG TABLET GT SCH (09:19)
[2020-12-22] MEDS: INSULIN GLARGINE, 100 UNIT/ML CARTRIDGE SQ SCH (09:26)
[2020-12-22 12:00] VITALS: BP 123/71
== END 2020-12-22 15:37 | DRG 720 ==
LOC: ER 15:46 → TELE1 17:23
PROVIDERS: ADMIT Family Medicine; ATTEND Nurse Practitioner Acute Care
PROC: 5A1955Z Respiratory Ventilation, Greater than 96 Consecutive Hours (ICD-10-PCS; principal; 2020-12-10)
PROC: 05H633Z Insertion of Infusion Device into Left Subclavian Vein, Percutaneous Approach (ICD-10-PCS; 2020-12-13)
PROC: B547ZZA Ultrasonography of Left Subclavian Vein, Guidance (ICD-10-PCS; 2020-12-13)
DX: B37.7 Candidal sepsis (principal); N17.0 Acute kidney failure with tubular necrosis; K72.00 Acute and subacute hepatic failure without coma; G92 Toxic encephalopathy; J96.11 Chronic respiratory failure with hypoxia; E44.0 Moderate protein-calorie malnutrition; J96.12 Chronic respiratory failure with hypercapnia; L89.516 Pressure-induced deep tissue damage of right ankle; J90 Pleural effusion, not elsewhere classified; D63.8 Anemia in other chronic diseases classified elsewhere; E66.2 Morbid (severe) obesity with alveolar hypoventilation; E87.0 Hyperosmolality and hypernatremia; E03.9 Hypothyroidism, unspecified; E11.65 Type 2 diabetes mellitus with hyperglycemia; E83.52 Hypercalcemia; N39.0 Urinary tract infection, site not specified; Z20.822 Contact with and (suspected) exposure to COVID-19; Z99.11 Dependence on respirator [ventilator] status; M20.41 Other hammer toe(s) (acquired), right foot; M20.42 Other hammer toe(s) (acquired), left foot; R13.10 Dysphagia, unspecified; Z93.1 Gastrostomy status; E86.1 Hypovolemia; M19.90 Unspecified osteoarthritis, unspecified site; E88.09 Other disorders of plasma-protein metabolism, not elsewhere classified; Z68.42 Body mass index [BMI] 45.0-49.9, adult; L98.8 Other specified disorders of the skin and subcutaneous tissue; L90.5 Scar conditions and fibrosis of skin; G81.90 Hemiplegia, unspecified affecting unspecified side; F32.9 Major depressive disorder, single episode, unspecified; Z79.4 Long term (current) use of insulin; B96.20 Unspecified Escherichia coli [E. coli] as the cause of diseases classified elsewhere; Z16.12 Extended spectrum beta lactamase (ESBL) resistance; B95.2 Enterococcus as the cause of diseases classified elsewhere
CPT/HCPCS: 31720; 36410; 36415; 36600; 70450-TC; 71045-TC; 80048-TC; 80053-TC; 80061-TC; 80076-TC; 80202-TC; 81001; 82040-TC; 82310-TC; 82550-TC; 82803-TC; 82962-TC; 83605-TC; 83735-TC; 83970; 84100-TC; 84155; 84165; 84484-TC; 84702-TC; 85025-TC; 85730-TC; 87040-TC; 87081-TC; 87086-TC; 87186-TC; 94003-TC; 94760-TC; 94762-TC; 94799-TC; 99082-TC; A4623; A7526; A9563; G0378; J0696; J1650; J1815; J1940; J2185; J2248; J2430; J3370; J3490; J7030; J7040; J7050; J7060; U0003

== ENCOUNTER 2021-02-09 15:04 | Inpatient (IN) | payer OTHER ==
[~2021-02-09] VITALS: Ht 170.2 cm; Wt 149.2 kg
[~2021-02-09 15:04] MED LIST: ACET325T53 GT; AMIN887L GT; AMLO5TAB4 GT; ASCO500C17 GT; BISA10SU11 RC; CEFT1VIA15 IV; ENOX40DI9 SQ; FAMO20TA8 GT; FOLI0.8T3 GT; INSU100V39 SQ; INSU100V7 SQ; IPRA4AER IH; LEVO112T5 GT; LIOT5TAB7 GT; LORA-258 GT; MAGN400O6 GT; MICA100V3 IV; NA P133E RC; NUT.237L30 GT; SENN8.6T19 GT; SERT100T GT; TAMS-12 GT; TEMA15CA GT; TRAM50TA2 GT; ZINC220T4 GT
--- NOTE | 2021-02-09 15:30 | NUR ---
[facility] [address] Dr Vu for removal of SC PICC. The patient is noted to have GT, streeter cath, vent and trach. The patient is alert/oriented and able to communicate mouthing words. Attached to the monitor. Tolerating vent settings well. Will continue to monitor the patient.
--- NOTE | 2021-02-09 16:15 | NUR ---
SALINE LOCK ESTABLISHED, BLOOD DRAWN AND PICKED UP BY LAB
--- NOTE | 2021-02-09 16:18 | NUR ---
URINE COLLECTED AND SENT TO LAB
--- NOTE | 2021-02-09 16:20 | NUR ---
COVID PCR SWAB DONE AND SENT TO LAB
[2021-02-09 16:25] LABS: BASOPHILS % (AUTO) 0.1 % (0.0-2.0); EOSINOPHILS % (AUTO) 1.9 % (0.0-6.0); HEMATOCRIT 28 % (33-45); HEMOGLOBIN 9.1 g/dL (11.5-14.8); LYMPHOCYTES # (AUTO) 1.2 K/uL (0.8-4.8); LYMPHOCYTES % (AUTO) 7.7 % (20.0-44.0); MEAN CORPUSCULAR HGB CONC 32 g/dl (31.0-36.0); MEAN CORPUSCULAR VOLUME 96 fL (82-100); MONOCYTES # (AUTO) 1.6 K/uL (0.1-1.30); MONOCYTES % (AUTO) 9.6 % (2.0-12.0); NEUTROPHILS % (AUTO) 80.7 % (43.0-81.0); PLATELET COUNT (AUTO) 259 K/uL (150-450); RED BLOOD CELL COUNT(AUTO) 2.96 MIL/uL (4.0-5.2); WHITE BLOOD COUNT (AUTO) 16.2 K/uL (4.3-11.0)
[2021-02-09 16:36] LABS: CALCIUM, SERUM 10.3 mg/dL (8.5-10.1); CARBON DIOXIDE 35 mmol/L (21-32); CHLORIDE 87 mmol/L (98-107); CREATININE 2.2 mg/dL (0.6-1.3); GLUCOSE 167 mg/dL (74-106); SODIUM SERUM 126 mmol/L (136-145); UREA NITROGEN, BLOOD 69 mg/dL (7-18)
[2021-02-09 16:38] LABS: POTASSIUM 6.3 mmol/L (3.5-5.1)
[2021-02-09 16:42] LABS: ALANINE AMINOTRANSFERASE 30 U/L (12-78); ALBUMIN 2.1 g/dL (3.4-5.0); ALKALINE PHOSPHATASE 124 U/L (46-116); ASPARTATE AMINOTRANSFERASE 27 U/L (15-37); BILIRUBIN,DIRECT 0.1 mg/dL (0.0-0.2); BILIRUBIN,TOTAL 0.3 mg/dL (0.2-1.0); TOTAL PROTEIN, SERUM 8.4 g/dL (6.4-8.2)
[2021-02-09] MEDS ORDERED: CALCIUM CHLORIDE 1,000 MG/10 ML DISP.SYRIN IV ONE (17:00)
[2021-02-09] MEDS ORDERED: IV NS 0.9% 1,000 ML BAG IV ONE ×2 (17:00)
[2021-02-09] MEDS ORDERED: SODIUM POLYSTYRENE SULFONATE 15 G/60 ML BOTTLE GT ONE (17:00)
[2021-02-09] MEDS ORDERED: VANCOMYCIN 1 GM in IV D5W 250 ML IV ONE (17:00)
[2021-02-09] MEDS ORDERED: CEFEPIME 1 GM in IV D5W 50 ML IV ONE (17:00)
--- NOTE | 2021-02-09 17:38 | NUR ---
CALLED NURSING SUP REGARDING PT BED
[2021-02-09] MEDS ORDERED: ACETAMINOPHEN 650 MG/20.3 ML UDC ONE (19:25)
[2021-02-09] MEDS ORDERED: ACETAMINOPHEN 160 MG/5 ML PO ONE (19:30)
[2021-02-09 19:46] LABS: BILIRUBIN,URINE NEGATIVE (NEGATIVE); COLOR,URINE YELLOW (YELLOW); LEUKOCYTE ESTERASE ,URINE MODERATE (NEGATIVE); NITRITE, URINE NEGATIVE (NEGATIVE); PH,URINE 7.5 (5.0-8.0); PROTEIN,URINE >=300 mg/dl (NEGATIVE); UGLUCOSE NEGATIVE (NEGATIVE); UROBILINOGEN,URINE 0.2 EU/dL (0.2)
[2021-02-09 20:00] LABS: BACTERIA,URINE 3+ /HPF (None Seen); RBC,URINE 51-80 /HPF (0-2); SQUAMOUS EPITHELIAL CELL,UR 0-2 /HPF (None Seen); WBC,URINE 21-50 /HPF (0-3)
[2021-02-09 20:04] LABS: BAND % (MANUAL) 8 % (0.0-5.0); EOSINOPHILS % (MANUAL) 4 % (0-4); LYMPHOCYTES % (MANUAL) 8 % (16-48); MONOCYTES % (MANUAL) 5 % (0-11.0); NEUTROPHILS % (MANUAL) 75 (42-76)
--- NOTE | 2021-02-09 20:04 | NUR ---
RT pt received on current vent settings. trached. spare trach at bedside. ambu bag at bedside. no sob. no resp distress. vent plugged in to red outlet. alarms on and audible. will continue to monitor.
--- NOTE | 2021-02-09 20:04 | NUR ---
RECTAL TUBE INSERTED PER ORDER OF NANCY SHELTON
[2021-02-09] MEDS ORDERED: MAG HYDROX/AL HYDROX/SIMETH 30 ML UDC PO PRN (22:30)
[2021-02-09] MEDS ORDERED: ZOLPIDEM TARTRATE 5 MG TABLET PO PRN (22:30)
[2021-02-09] MEDS ORDERED: MAGNESIUM HYDROXIDE 30 ML UDC PO PRN (22:30)
[2021-02-09] MEDS ORDERED: Z GUARD REMEDY 2 OZ OINT TP PRN (22:30)
[2021-02-09] MEDS ORDERED: ONDANSETRON HCL/PF 4 MG/2 ML VIAL IVP PRN (22:30)
--- NOTE | 2021-02-09 22:37 | NUR ---
TELE 106
--- NOTE | 2021-02-09 23:17 | NUR ---
REPORT GIVEN TO KASSANDRA DUDLEY
--- NOTE | 2021-02-09 23:30 | NUR ---
6724 Admitted from ER 50 year old female via [place] with Dx Sepsis. Awake and able to mouth words. Ventilator dependent with trach intact and secured at midline. Suctioned with large amount of yellowish secretions. Admission care and assessment done. Noted with multiple skin breakdown. Noted with double lumen right chest central line. Edouard intact and patent with tea colored urine with sediments. Rectal tube in place. Good bed bath provided. Turned and repositioned for skin management. HOB elevated for aspiration precaution and max oxygenation. Call light placed within reach. Needs attended.
--- NOTE | 2021-02-09 23:35 | NUR ---
PT TRANSPORTED TO [facility] ON MONITOR PER ACLS PROTOCOL WITHOUT INCIDENT
--- NOTE | 2021-02-09 23:38 | NUR ---
RT pt transferred to floor with no complications. vent plugged in to red outlet. ambu bag at bedside. spare trach at bedside. no sob, no resp distress. will continue to monitor.
[2021-02-10] VITALS: BP 103/84
[2021-02-10] MEDS: IV NS 0.9% 1,000 ML IV PRN ×2 (00:20→12:11)
[2021-02-10 04:00] VITALS: BP 95/47
[2021-02-10 04:51] LABS: BASOPHILS % (AUTO) 0.4 % (0.0-2.0); EOSINOPHILS % (AUTO) 1.3 % (0.0-6.0); HEMATOCRIT 27 % (33-45); HEMOGLOBIN 8.9 g/dL (11.5-14.8); LYMPHOCYTES # (AUTO) 0.8 K/uL (0.8-4.8); LYMPHOCYTES % (AUTO) 7.3 % (20.0-44.0); MEAN CORPUSCULAR HGB CONC 33 g/dl (31.0-36.0); MEAN CORPUSCULAR VOLUME 95 fL (82-100); MONOCYTES # (AUTO) 0.8 K/uL (0.1-1.30); MONOCYTES % (AUTO) 7.2 % (2.0-12.0); NEUTROPHILS # (AUTO) 9.4 K/uL (1.8-8.9); NEUTROPHILS % (AUTO) 83.8 % (43.0-81.0); PLATELET COUNT (AUTO) 226 K/uL (150-450); RED BLOOD CELL COUNT(AUTO) 2.82 MIL/uL (4.0-5.2); WHITE BLOOD COUNT (AUTO) 11.2 K/uL (4.3-11.0)
[2021-02-10] MEDS ORDERED: CEFEPIME 1 GM VIAL ONE (05:11)
[2021-02-10 05:18] LABS: CALCIUM, SERUM 10.3 mg/dL (8.5-10.1); MAGNESIUM 2.1 mg/dL (1.8-2.4); PHOSPHORUS 3.6 mg/dL (2.5-4.9); POTASSIUM 5.7 mmol/L (3.5-5.1)
[2021-02-10 05:30] LABS: THYROID STIMULATING HORMONE 1.485 uIU/mL (0.358-3.74)
[2021-02-10] MEDS ORDERED: CEFEPIME 1 GM in IV D5W 50 ML IV ONE (05:30)
--- NOTE | 2021-02-10 07:30 | NUR ---
TD RN NOTES RECEIVED PATIENT IN BED, AOX 3-4, MOUTHS WORDS, WITH SHILEY 8XLT TO MECHANICAL VENT WITH THE FOLLOWING SETTING: AC 16 TV 500 FIO2 40 P 5 PRESSURE SUPPORT 10. NOT IN ANY DISTRESS, BREATHING EVEN AND UNLABORED, SINUS RHYTHM HR 76 ON MONITOR. DENIES PAIN AT THIS TIME, IV ACCESS TO LFA G20 WITH NS AT 100 ML/HR INFUSING WELL, WITH A CENTRAL LINE ON UPPER RCW, INTACT DRESSING. WITH GT CLAMPED AT THIS TIME. SEE NURSING FLOWSHEET FOR SKIN ISSUES. NPO FOR NOW. RECTAL TUBE IN PLACE, COURTNEY CATH IN PLACE WITH CLOUDY URINE DRAINING TO GRAVITY. ADEQUATE AMOUNT. FOR WOUND CONSULT, NEPHRO CONSULT. BED LOW LOCKED, HOB ELEVATED 30 DEG. SR UP X 2. WAITING FOR [facility] B[facility]. CALL LIGHT WITHIN REACH. WILL CONTINUE TO MONITOR
[2021-02-10 08:00] VITALS: BP 93/47
--- NOTE | 2021-02-10 08:22 | NUR ---
WOUND CARE CONSULT: PT FOLLOWED BY DR FRANK FOR WOUND/SKIN TREATMENT. RECOMMENDATIONS MADE FOR SKIN PROTECTION. DISCUSSED WITH NURSING STAFF. IN AGREEMENT WITH PLAN OF CARE. Addendum: 02/10/21 at 0823 by CAESAR ESTRADA [facility] AIR BED ON ORDER.
--- NOTE | 2021-02-10 11:23 | NUR ---
RN NOTES DR. KEEGAN COHEN NOTIFIED ABOUT MEDICATION RECONCILIATION
--- NOTE | 2021-02-10 11:47 | NUR ---
RN NOTES DR. BAIG AT BEDSIDE. CENTRAL LINE REMOVED. PRESSURES APPLIED INSTRUCTED FOR 5-10 MINUTES. NO BLEEDING. DRESSING IN PLACE. CATHETER SENT TO LAB FOR CULTURE
[2021-02-10 12:00] VITALS: BP 96/51
[2021-02-10 16:00] VITALS: BP 101/51
[2021-02-10] MEDS ORDERED: SODIUM POLYSTYRENE SULFONATE 15 G/60 ML BOTTLE GT ONE (16:00)
[2021-02-10] MEDS: VANCOMYCIN 1.5 GM in IV D5W 500 ML IV SCH (16:38)
--- NOTE | 2021-02-10 18:27 | NUR ---
RN CLOSING NOTES RECEIVED PATIENT IN BED, AOX 3-4, MOUTHS WORDS, WITH SHILEY 8XLT TO MECHANICAL VENT WITH THE FOLLOWING SETTING: AC 16 TV 500 FIO2 40 P 5 PRESSURE SUPPORT 10. NOT IN ANY DISTRESS, BREATHING EVEN AND UNLABORED, SINUS RHYTHM HR 91 ON MONITOR. DENIES PAIN AT THIS TIME, IV ACCESS TO LFA G20 WITH NS AT 100 ML/HR INFUSING WELL, WITH GT CLAMPED AT THIS TIME. RECTAL TUBE IN PLACE, COURTNEY CATH IN PLACE WITH CLOUDY URINE DRAINING TO GRAVITY. ADEQUATE AMOUNT. FOR WOUND CONSULT, NEPHRO CONSULT. BED LOW LOCKED, HOB ELEVATED 30 DEG. SR UP X 2. WAITING FOR [facility] B[facility]. CALL LIGHT WITHIN REACH. WILL CONTINUE TO MONITOR CALLED NUTRITION REGARDING GLUCERNA 1.2 TUBE FEEDING.
--- NOTE | 2021-02-10 19:00 | NUR ---
RN NOTE RECEIVED PATIENT IN BED, AO X 3-4, MOUTHS WORDS, IN NO S/SX OF ACUTE DISTRESS AT THIS TIME. SATURATION AT 99% ON TRACH SHILEY#8 XLT CONNECTED TO MECHANICAL VENT WITH SETTINGS PRESCRIBED: SIMV 16, TV 500, FIO2 40%, PEEP 5, PRESSURE SUPPORT 10; SR ON THE MONITOR, HR IS 95. NOTED IV SITE AT LFA 20G, PATENT AND FLUSHING WELL, NO S/S OF INFECTION OR INFILTRATION WITH NS INFUSING AT 100 ML/HR. NOTED GTUBE INTACT POSITIVE PLACEMENT NOTED, NO RESIDUAL, STARTED TUBE FEEDING OF GLUCERNA 1.2 WITH A GOAL OF 70 ML/HR PER MD ORDER. COURTNEY CATHETER CONNECTED TO URINE BAG IN PLACE, DRAINING TO A TEA COLORED CLOUDY URINE. RECTAL TUBE IN PLACE, NO OUTPUT NOTED. SAFETY MEASURES IMPLEMENTED. PATIENT BED ALARM IS ON. HEAD OF BED ELEVATED. BED IS LOCKED, IN LOWEST POSITION AND SIDE RAILS UP. CALL LIGHT WITHIN REACH OF THE PATIENT. WILL CONTINUE TO MONITOR AND REASSESS FOR ANY CHANGES.
[2021-02-10] MEDS: GLUCERNA 1.2 1,000 ML BOTTLE NG PRN (19:33)
[2021-02-10 20:00] VITALS: BP 129/66
[2021-02-10] MEDS: CEFEPIME 2 GM in IV D5W 100 ML IV SCH (21:06)
[2021-02-10] MEDS: ACETAMINOPHEN 325 MG TABLET PO PRN (21:57)
[2021-02-11] VITALS: BP 108/54
[2021-02-11] MEDS: IV NS 0.9% 1,000 ML IV PRN ×2 (03:05→14:30)
[2021-02-11 04:00] VITALS: BP 127/56
[2021-02-11] MEDS: ACETAMINOPHEN 325 MG TABLET PO PRN ×2 (04:42→12:39)
[2021-02-11 06:29] LABS: BASOPHILS % (AUTO) 0.3 % (0.0-2.0); HEMATOCRIT 23 % (33-45); HEMOGLOBIN 7.7 g/dL (11.5-14.8); LYMPHOCYTES # (AUTO) 1.1 K/uL (0.8-4.8); LYMPHOCYTES % (AUTO) 14.5 % (20.0-44.0); MEAN CORPUSCULAR HGB CONC 33 g/dl (31.0-36.0); MEAN CORPUSCULAR VOLUME 95 fL (82-100); MONOCYTES # (AUTO) 0.9 K/uL (0.1-1.30); MONOCYTES % (AUTO) 11.8 % (2.0-12.0); NEUTROPHILS # (AUTO) 5.2 K/uL (1.8-8.9); NEUTROPHILS % (AUTO) 70.4 % (43.0-81.0); PLATELET COUNT (AUTO) 216 K/uL (150-450); RED BLOOD CELL COUNT(AUTO) 2.41 MIL/uL (4.0-5.2); WHITE BLOOD COUNT (AUTO) 7.4 K/uL (4.3-11.0)
[2021-02-11 06:58] LABS: CALCIUM, SERUM 9.4 mg/dL (8.5-10.1); CREATININE 1.7 mg/dL (0.6-1.3); POTASSIUM 3.5 mmol/L (3.5-5.1)
--- NOTE | 2021-02-11 07:30 | NUR ---
PLANT OPERATIONS WORKER OPENING NOTES RECEIVED PATIENT IN BED, AO X 3-4, MOUTHS WORDS, IN NO S/SX OF ACUTE DISTRESS AT THIS TIME. SATURATION AT 99% ON TRACH SHILEY#8 XLT CONNECTED TO MECHANICAL VENT WITH SETTINGS PRESCRIBED: SIMV 16, TV 500, FIO2 40%, PEEP 5, PRESSURE SUPPORT 10; SR ON THE MONITOR, HR IS 86. WITH IV ACCESS AT LFA 20G, PATENT AND FLUSHING WELL, NO S/S OF INFECTION OR INFILTRATION WITH NS INFUSING AT 100 ML/HR. ON GLUCERNA 1.2 FEEDING AT 60ML/HR VIA G-TUBE, FLUSHING WELL. WITH COURTNEY CATHETER DRAINING WELL. RECTAL TUBE IN PLACE, NO OUTPUT NOTED. SAFETY MEASURES IN PLACE. CALL LIGHT WITHIN REACH. BED ON LOWEST AND LOCKED POSITION, BED ALARM ON. WILL CONTINUE TO MONITOR.
[2021-02-11 08:00] VITALS: BP 119/51
[2021-02-11] MEDS: CEFEPIME 2 GM in IV D5W 100 ML IV SCH ×2 (08:08→21:34)
[2021-02-11 10:13] LABS: BAND % (MANUAL) 4 % (0.0-5.0); EOSINOPHILS % (MANUAL) 3 % (0-4); LYMPHOCYTES % (MANUAL) 16 % (16-48); MONOCYTES % (MANUAL) 11 % (0-11.0); NEUTROPHILS % (MANUAL) 65 (42-76)
[2021-02-11 10:14] LABS: MYELOCYTES % 1 % (0-0)
[2021-02-11 12:00] VITALS: BP 123/69
[2021-02-11 16:00] VITALS: BP 132/57
[2021-02-11] MEDS: VANCOMYCIN 1.5 GM in IV D5W 500 ML IV SCH (16:28)
[2021-02-11] MEDS ORDERED: TRAMADOL HCL 50 MG TABLET GT PRN (17:30)
[2021-02-11] MEDS ORDERED: IPRATROPIUM NEB FS 0.5 MG/2.5 ML AMPUL.NEB NEB PRN (17:30)
[2021-02-11] MEDS ORDERED: ALBUTEROL FS 2.5 MG/0.5 ML VIAL.NEB NEB PRN (17:30)
[2021-02-11] MEDS ORDERED: Medication Not On Formulary EA (Ipratropium/Albuterol Sulfate (Combivent Respimat 20-100 IH PRN (17:30)
[2021-02-11] MEDS ORDERED: NA PHOS,M-B/NA PHOS,DI-BA 1 EA ENEMA RC PRN (17:30)
[2021-02-11] MEDS ORDERED: MAGNESIUM HYDROXIDE 30 ML UDC GT PRN (17:30)
[2021-02-11] MEDS ORDERED: BISACODYL SUPP (10 MG) 10 MG/SUPP.RECT SUPP.RECT RC PRN (17:30)
[2021-02-11] MEDS ORDERED: Medication Not On Formulary EA (Ipratropium/Albuterol Sulfate (Combivent Respimat 20-100 IH SCH (18:00)
--- NOTE | 2021-02-11 18:51 | NUR ---
TRAIN OPERATIONS MANAGER OPENING NOTES RECEIVED PATIENT IN BED, AO X 3-4, MOUTHS WORDS, IN NO S/SX OF ACUTE DISTRESS AT THIS TIME. SATURATION AT 99% ON TRACH SHILEY#8 XLT CONNECTED TO MECHANICAL VENT WITH SETTINGS PRESCRIBED: SIMV 16, TV 500, FIO2 40%, PEEP 5, PRESSURE SUPPORT 10; SR ON THE MONITOR, HR IS 86. WITH IV ACCESS AT LFA 20G, PATENT AND FLUSHING WELL, NO S/S OF INFECTION OR INFILTRATION WITH NS INFUSING AT 100 ML/HR. ON GLUCERNA 1.2 FEEDING AT 60ML/HR VIA G-TUBE, FLUSHING WELL. WITH COURTNEY CATHETER DRAINING WELL. RECTAL TUBE IN PLACE, NO OUTPUT NOTED. SAFETY MEASURES IN PLACE. CALL LIGHT WITHIN REACH. BED ON LOWEST AND LOCKED POSITION, BED ALARM ON. WILL CONTINUE TO MONITOR. Addendum: 02/11/21 at 1855 by RICK APONTE RN ERROR
--- NOTE | 2021-02-11 18:55 | NUR ---
FISH AND WILDLIFE WARDEN CLOSING NOTES PATIENT RESTING IN BED, AO X 3-4, MOUTHS WORDS, IN NO S/SX OF ACUTE DISTRESS AT THIS TIME. SATURATION AT 97% ON TRACH SHILEY#8 XLT CONNECTED TO MECHANICAL VENT WITH SETTINGS PRESCRIBED: SIMV 16, TV 500, FIO2 40%, PEEP 5, PRESSURE SUPPORT 10; SR ON THE MONITOR, HR IS 84. WITH IV ACCESS AT LFA 20G, PATENT AND FLUSHING WELL, NO S/S OF INFECTION OR INFILTRATION WITH NS INFUSING AT 100 ML/HR. ON GLUCERNA 1.2 FEEDING AT 60ML/HR VIA G-TUBE, FLUSHING WELL. WITH COURTNEY CATHETER DRAINING WELL. RECTAL TUBE IN PLACE WITH AN OUTPUT OF 260 NOTED. SAFETY MEASURES IN PLACE. CALL LIGHT WITHIN REACH. BED ON LOWEST AND LOCKED POSITION, BED ALARM ON. WILL ENDORSE TO NEXT SHIFT FOR ANYI.
[2021-02-11] MEDS: ALBUTEROL FS 2.5 MG/0.5 ML VIAL.NEB NEB SCH (19:30)
[2021-02-11] MEDS: IPRATROPIUM NEB FS 0.5 MG/2.5 ML AMPUL.NEB NEB SCH (19:30)
[2021-02-11 20:00] VITALS: BP 132/50
--- NOTE | 2021-02-11 20:07 | NUR ---
PT RECVD AWAKE AND ALERT ON SIMV VENT SETTINGS ORDERED. TRACH IS PATENT AND SECURED. SUCTION Q2/PRN. NO SOB OR RESPIRATORY DISTRESS NOTED AT THIS TIME. AMBU BAG AND SPARE TRACH AT BEDSIDE. ALARMS ARE ON AND AUDIBLE AND VENT IS PLUGGED INTO RED OUTLET. WILL CONTINUE TO MONITOR.
[2021-02-11] MEDS: LORAZEPAM 0.5 MG TABLET GT PRN (21:33)
[2021-02-11] MEDS: SENNOSIDES 8.6 MG TABLET GT SCH (21:33)
[2021-02-11] MEDS: SERTRALINE HCL 50 MG TABLET GT SCH (21:33)
[2021-02-11] MEDS: FAMOTIDINE (20 MG) 20 MG TABLET GT SCH (21:33)
[2021-02-11] MEDS: INSULIN GLARGINE, 100 UNIT/ML CARTRIDGE SQ SCH (22:26)
[2021-02-12] VITALS: BP 134/52
[2021-02-12] MEDS: IPRATROPIUM NEB FS 0.5 MG/2.5 ML AMPUL.NEB NEB SCH ×4 (01:30→21:45)
[2021-02-12] MEDS: ALBUTEROL FS 2.5 MG/0.5 ML VIAL.NEB NEB SCH ×4 (01:30→21:45)
[2021-02-12 04:00] VITALS: BP 137/49
[2021-02-12] MEDS: IV NS 0.9% 1,000 ML IV PRN (05:29)
[2021-02-12 06:29] LABS: BASOPHILS % (AUTO) 0.3 % (0.0-2.0); EOSINOPHILS % (AUTO) 4.1 % (0.0-6.0); HEMATOCRIT 25 % (33-45); HEMOGLOBIN 8.3 g/dL (11.5-14.8); LYMPHOCYTES # (AUTO) 1.1 K/uL (0.8-4.8); LYMPHOCYTES % (AUTO) 16.1 % (20.0-44.0); MEAN CORPUSCULAR HGB CONC 33 g/dl (31.0-36.0); MEAN CORPUSCULAR VOLUME 95 fL (82-100); MONOCYTES # (AUTO) 0.9 K/uL (0.1-1.30); MONOCYTES % (AUTO) 12.5 % (2.0-12.0); NEUTROPHILS # (AUTO) 4.7 K/uL (1.8-8.9); PLATELET COUNT (AUTO) 233 K/uL (150-450); RED BLOOD CELL COUNT(AUTO) 2.63 MIL/uL (4.0-5.2); WHITE BLOOD COUNT (AUTO) 7.1 K/uL (4.3-11.0)
--- NOTE | 2021-02-12 06:43 | NUR ---
RN notes Alert and oriented, able to mouthwours needs. In bed watching TV with no distress noted. Breathing even and unlabored. On4lpm On vent setting well tolerated. No complaint of pain or discomfort. Vital signs within normal limits. No significant change of condition. Kept clean and dry. Will endorse to next shift for continuity of care.
[2021-02-12 06:59] LABS: CALCIUM, SERUM 8.9 mg/dL (8.5-10.1); CREATININE 1.3 mg/dL (0.6-1.3); POTASSIUM 3.1 mmol/L (3.5-5.1)
--- NOTE | 2021-02-12 07:16 | NUR ---
RN OPENING NOTE- PATIENT RESTING IN BED, AO X 3-4, MOUTHS WORDS/ DIFFICULT TO UNDERSTAND AT TIMES. IN NO S/SX OF ACUTE DISTRESS AT THIS TIME. SATURATION AT 97% ON TRACH SHILEY#8 XLT CONNECTED TO MECHANICAL VENT WITH SETTINGS PRESCRIBED; SR ON THE MONITOR, HR IS 80. WITH IV ACCESS AT LFA 20G, PATENT AND FLUSHING WELL, NO S/S OF INFECTION OR INFILTRATION WITH NS INFUSING AT 100 ML/HR. ON GLUCERNA 1.2 FEEDING AT 60ML/HR VIA G-TUBE, FLUSHING WELL. WITH COURTNEY CATHETER DRAINING WELL. RECTAL TUBE IN PLACE WITH AN OUTPUT OF 200 NOTED. SAFETY MEASURES IN PLACE. CALL LIGHT WITHIN REACH. BED ON LOWEST AND LOCKED POSITION, BED ALARM ON. ASSIST / MONITOR.
[2021-02-12] MEDS: LEVOTHYROXINE SODIUM 100 MCG TABLET GT SCH (07:32)
[2021-02-12 08:00] VITALS: BP 121/64
[2021-02-12] MEDS: FAMOTIDINE (20 MG) 20 MG TABLET GT SCH ×2 (08:55→22:07)
[2021-02-12] MEDS: LIOTHYRONINE SODIUM (5 MCG/TA 5 MCG TABLET GT SCH ×2 (08:55→17:07)
[2021-02-12] MEDS: ZINC SULFATE 220 MG CAPSULE GT SCH (08:55)
[2021-02-12] MEDS: FOLIC ACID 1 MG TABLET GT SCH (08:55)
[2021-02-12] MEDS: SERTRALINE HCL 50 MG TABLET GT SCH ×2 (08:55→22:06)
[2021-02-12] MEDS: ASCORBIC ACID 500 MG TABLET GT SCH (08:55)
[2021-02-12] MEDS: TAMSULOSIN 0.4 MG CAP.SR.24H GT SCH (08:55)
[2021-02-12] MEDS: CEFEPIME 2 GM in IV D5W 100 ML IV SCH ×2 (08:56→22:06)
[2021-02-12] MEDS: AMLODIPINE BESYLATE 5 MG TABLET GT SCH (08:56)
[2021-02-12] MEDS: PROSTAT (PYXIS) 30 ML UDC GT SCH ×2 (09:00→17:00)
[2021-02-12] MEDS ORDERED: POTASSIUM CL. PREMIX PERIPHER. 50 ML IV SCH (09:00)
[2021-02-12] MEDS ORDERED: ZINC SULFATE 220 MG CAPSULE GT SCH (09:00)
--- NOTE | 2021-02-12 09:00 | NUR ---
RN NOTE- PT W SATURATION DECREASED INTO HIGH 70S. RT AT BEDSIDE, SUCTIONED PT AND SATS RETURNED TO 96-98%. PT EXPERIENCING NAUSEA. TF STOPPED AT PRESENT. ZOFRAN 4 MG ADMINISTERED. WILL ASSESS NAUSEA/MONITOR/
[2021-02-12] MEDS: INSULIN GLARGINE, 100 UNIT/ML CARTRIDGE SQ SCH ×2 (09:21→22:43)
[2021-02-12] MEDS: LORAZEPAM 0.5 MG TABLET GT PRN (09:34)
--- NOTE | 2021-02-12 09:34 | NUR ---
RN NOTE- PT W RESTLESSNESS AND ANXIETY. ATIVAN 0.5 MG ADMINISTERED
[2021-02-12 10:52] LABS: BAND % (MANUAL) 3 % (0.0-5.0); EOSINOPHILS % (MANUAL) 6 % (0-4); LYMPHOCYTES % (MANUAL) 18 % (16-48); MONOCYTES % (MANUAL) 11 % (0-11.0); NEUTROPHILS % (MANUAL) 62 (42-76)
[2021-02-12 12:00] VITALS: BP 160/75
--- NOTE | 2021-02-12 12:12 | NUR ---
RN NOTE- PT RECEIVING FIRST BAG KCL SUPPLEMENTATION. IV INFILTRATED TO LFA . IV STOPPED. IV REMOVED. ICE APPLIED. DR WINTERS ORDERED KCL VIA GT AND MIDLINE ORDERED
[2021-02-12] MEDS ORDERED: POTASSIUM CHLORIDE 20 MEQ POWDER PACKET GT ONE (12:30)
--- NOTE | 2021-02-12 12:35 | NUR ---
RN NOTE- IV HEPLOCK 22G INSERTED TO LFA. TOLERATED WELL. KCL NOW VIA GT AND MIDLINE ORDERED .
[2021-02-12 16:00] VITALS: BP 144/65
--- NOTE | 2021-02-12 18:41 | NUR ---
RN CLOSING NOTE- CITLALLI YVETTE TO UNIT FOR MIDLINE. PT ON VENT/DEPENDENT . O2 SATS AT 90-98% RT TO UNIT FOR FREQUENT EVAL. ATIVAN 0.5 GIVEN ONCE FOR RESTLESSNESS. RECTAL TUBE DRAINING, COURTNEY TO GRAVITY. GT FEEDING AT 70/HR. MEDS PER ORDERS. TOPICAL RX FOR SKIN FOLDS AND RASH. SIDE RAILS UP, REPOSITIONED FOR COMFORT.
[2021-02-12 20:00] VITALS: BP 149/79
--- NOTE | 2021-02-12 20:00 | NUR ---
RADIOLOGY SCHEDULER NOTE PT IN BED AWAKE. A/O X 2 MOUTH WORDS. ON VENT/TRACH TOLERATING THE SETTINGS WELL. SUCTIONED HER NEEDED. THIN WHITE SECRETIONS NOTED. S/P TONY WITH MIDLINE #18 G INTACT AND PATENT. RFA #22 G I/P. GTF GLUCERNA INFUSING AT 70 ML/HR, 0 ML RESIDUAL NOTED. F/C INTACT AND PATENT DRAINING YELLOWISH COLOR URINE. ALSO FLEXI SEAL INTACT AND PATENT. NOTED WITH LIQUIDY STOOL. IVF NS INFUSING AT 100 ML/HR, NO S/S OF INFILTRATION NOTED. ON TELE SR HR 80. SIDE RAILS UP X 2 AND CALL LIGHT WITHIN REACH. VSS. REPOSITION HER Q2H, KEPT HER DRY AND CLEAN. CONTINUE TO MONITOR HER.
[2021-02-12] MEDS: SENNOSIDES 8.6 MG TABLET GT SCH (22:07)
[2021-02-13] VITALS: BP 127/78
[2021-02-13] MEDS: GLUCERNA 1.2 1,000 ML BOTTLE NG PRN (00:28)
[2021-02-13] MEDS: IPRATROPIUM NEB FS 0.5 MG/2.5 ML AMPUL.NEB NEB SCH ×3 (01:30→13:57)
[2021-02-13] MEDS: ALBUTEROL FS 2.5 MG/0.5 ML VIAL.NEB NEB SCH ×3 (03:21→13:57)
[2021-02-13 04:00] VITALS: BP 132/78
--- NOTE | 2021-02-13 04:40 | NUR ---
senior security engineer note Pt complaining of pain in lower back 06/08.Tylenol 650mg given via G tube.
[2021-02-13] MEDS: ACETAMINOPHEN 325 MG TABLET PO PRN (04:44)
[2021-02-13] MEDS: IV NS 0.9% 1,000 ML IV PRN ×2 (05:36→15:57)
--- NOTE | 2021-02-13 05:40 | NUR ---
long wall mining machine helper Re assessed the pt after administration of Tylenol,patient was not in distress and the pain was relieved. t
[2021-02-13 06:33] LABS: BASOPHILS % (AUTO) 0.4 % (0.0-2.0); EOSINOPHILS % (AUTO) 3.2 % (0.0-6.0); HEMATOCRIT 24 % (33-45); HEMOGLOBIN 7.9 g/dL (11.5-14.8); LYMPHOCYTES # (AUTO) 1.3 K/uL (0.8-4.8); LYMPHOCYTES % (AUTO) 16.5 % (20.0-44.0); MEAN CORPUSCULAR HGB CONC 33 g/dl (31.0-36.0); MEAN CORPUSCULAR VOLUME 94 fL (82-100); MONOCYTES # (AUTO) 1.1 K/uL (0.1-1.30); NEUTROPHILS # (AUTO) 5.1 K/uL (1.8-8.9); NEUTROPHILS % (AUTO) 65.9 % (43.0-81.0); PLATELET COUNT (AUTO) 262 K/uL (150-450); RED BLOOD CELL COUNT(AUTO) 2.51 MIL/uL (4.0-5.2); WHITE BLOOD COUNT (AUTO) 7.8 K/uL (4.3-11.0)
[2021-02-13 07:12] LABS: CALCIUM, SERUM 8.9 mg/dL (8.5-10.1); MAGNESIUM 1.5 mg/dL (1.8-2.4); POTASSIUM 3.6 mmol/L (3.5-5.1)
--- NOTE | 2021-02-13 07:14 | NUR ---
MANAGER ANIMATION NOTE PT IN BED ASLEEP, EASILY AROUSABLE , NO DISTRESS OR DISCOMFORT NOTED. DENIES PAIN. ON TELE SR. TOLERATING VENT SETTINGS. GTF INFUSING WELL. 0 ML RESIDUAL. FLEXI SEAL AND F/C INTACT AND PATENT DRAINING WELL. REPOSITION HER Q2H. KEPT HER DRY AND CLEAN. SIDE RAILS UP X 2 AND CALL LIGHT WITHIN REACH. ENDORSE TO DAY SHIFT NURSE FOR CONTINUE TO CARE.
--- NOTE | 2021-02-13 07:30 | NUR ---
RN NOTE PATIENT OBSERVED IN BED AWAKE, ALERT AND ORIENTED X4, RESPONS BY MOUTHING WORDS, ON TRACHEOSTOMY WITH MECHANICAL VENTILATOR, TOLERATING WELL O2 SAT OF 98% ON TELE MONITOR SINUS RHYTHM AT THIS TIME, PATIENT WITH COURTNEY CATHETER NO HEMATURIA NOTED PATENT DRAINING WELL VIA GRAVITY, TUBE FEEDING GLUCERNA 1.2 @ 70CC/HR TOLERATING WELL 10 CC RESIDUAL NOTED, WITH RIGHT UPPER ARM MIDLINE NOTED, PATENT INFUSING WELL RUNNING NS 100CC/HR, SAFETY MEASURE OBSERVED, BED WHEELS LOCK, CALL LIGHT WITHIN REACH, WILL CONTINUE TO MONITOR.
[2021-02-13] MEDS: LEVOTHYROXINE SODIUM 100 MCG TABLET GT SCH (07:58)
[2021-02-13 07:59] LABS: BAND % (MANUAL) 3 % (0.0-5.0); EOSINOPHILS % (MANUAL) 2 % (0-4); LYMPHOCYTES % (MANUAL) 17 % (16-48); METAMYELOCYTES % 4 % (0-0); MONOCYTES % (MANUAL) 7 % (0-11.0); MYELOCYTES % 7 % (0-0); NEUTROPHILS % (MANUAL) 60 (42-76)
[2021-02-13 08:00] VITALS: BP 124/81
[2021-02-13] MEDS ORDERED: VANCOMYCIN 1 GM in IV D5W 250ml IV SCH (09:00)
[2021-02-13] MEDS ORDERED: PROSOURCE / PROSTAT (PYXIS) 30 ML UDC GT SCH (09:00)
[2021-02-13] MEDS ORDERED: CEFT1VIA15 IV (09:18)
[2021-02-13] MEDS: AMLODIPINE BESYLATE 5 MG TABLET GT SCH (09:18)
[2021-02-13] MEDS: SERTRALINE HCL 50 MG TABLET GT SCH (09:18)
[2021-02-13] MEDS: LIOTHYRONINE SODIUM (5 MCG/TA 5 MCG TABLET GT SCH ×2 (09:18→16:16)
[2021-02-13] MEDS: FOLIC ACID 1 MG TABLET GT SCH (09:18)
[2021-02-13] MEDS: FAMOTIDINE (20 MG) 20 MG TABLET GT SCH (09:19)
[2021-02-13] MEDS: TAMSULOSIN 0.4 MG CAP.SR.24H GT SCH (09:19)
[2021-02-13] MEDS: ZINC SULFATE 220 MG CAPSULE GT SCH (09:19)
[2021-02-13] MEDS: ASCORBIC ACID 500 MG TABLET GT SCH (09:19)
[2021-02-13] MEDS: Magnesium 1GM/D5W 100ML PREMIX 100 ML IV SCH ×2 (09:20→10:46)
[2021-02-13] MEDS: CEFEPIME 2 GM in IV D5W 100 ML IV SCH (09:20)
[2021-02-13] MEDS: INSULIN GLARGINE, 100 UNIT/ML CARTRIDGE SQ SCH (09:25)
[2021-02-13 12:00] VITALS: BP 128/79
[2021-02-13 16:00] VITALS: BP 150/78
--- NOTE | 2021-02-13 18:09 | NUR ---
RN NOTE REPORT GIVEN TO HARRIETT DUDLEY.
--- NOTE | 2021-02-13 18:52 | NUR ---
RN NOTE PATIENT TECHNICAL INSTRUCTOR BY TRANSPORT AMBULANCE ON MECHANICAL VENTILATOR VTS STABLE.
== END 2021-02-13 18:52 | DRG 721 ==
LOC: ER 15:11 → TELE1 23:03 → TELE-TD 02-10 00:04 → TELE1 02-10 09:47
PROVIDERS: ADMIT Student in an Organized Health Care Education/Training Program; ATTEND Internal Medicine
PROC: 5A1955Z Respiratory Ventilation, Greater than 96 Consecutive Hours (ICD-10-PCS; principal; 2021-02-09)
PROC: 05HD33Z Insertion of Infusion Device into Right Cephalic Vein, Percutaneous Approach (ICD-10-PCS; 2021-02-12)
DX: T80.211A Bloodstream infection due to central venous catheter, initial encounter (principal); N17.0 Acute kidney failure with tubular necrosis; A41.50 Gram-negative sepsis, unspecified; E44.0 Moderate protein-calorie malnutrition; J96.11 Chronic respiratory failure with hypoxia; E87.1 Hypo-osmolality and hyponatremia; N39.0 Urinary tract infection, site not specified; E87.3 Alkalosis; E11.9 Type 2 diabetes mellitus without complications; B96.89 Other specified bacterial agents as the cause of diseases classified elsewhere; Z99.11 Dependence on respirator [ventilator] status; Z93.0 Tracheostomy status; E03.9 Hypothyroidism, unspecified; I10 Essential (primary) hypertension; Z20.822 Contact with and (suspected) exposure to COVID-19; Z79.4 Long term (current) use of insulin; Y84.8 Other medical procedures as the cause of abnormal reaction of the patient, or of later complication, without mention of misadventure at the time of the procedure; Y92.129 Unspecified place in nursing home as the place of occurrence of the external cause; E66.01 Morbid (severe) obesity due to excess calories; Z79.51 Long term (current) use of inhaled steroids; Z79.899 Other long term (current) drug therapy; E87.5 Hyperkalemia; I69.359 Hemiplegia and hemiparesis following cerebral infarction affecting unspecified side; F32.9 Major depressive disorder, single episode, unspecified; L85.3 Xerosis cutis; M20.42 Other hammer toe(s) (acquired), left foot; M20.41 Other hammer toe(s) (acquired), right foot; R13.10 Dysphagia, unspecified; Z86.16 Personal history of COVID-19; Z93.1 Gastrostomy status; Z68.43 Body mass index [BMI] 50.0-59.9, adult; Z87.440 Personal history of urinary (tract) infections; Z74.09 Other reduced mobility; M19.90 Unspecified osteoarthritis, unspecified site; Z79.01 Long term (current) use of anticoagulants; L98.9 Disorder of the skin and subcutaneous tissue, unspecified; G89.29 Other chronic pain; D64.9 Anemia, unspecified; J98.11 Atelectasis
CPT/HCPCS: 31720; 36415; 71045-TC; 80048-TC; 80076-TC; 80202-TC; 81001; 82962-TC; 83605-TC; 83735-TC; 84100-TC; 84295-TC; 84443-TC; 84484-TC; 85025-TC; 85730-TC; 87040-TC; 87070-TC; 87081-TC; 87086-TC; 87186-TC; 94003-TC; 94760-TC; 94762-TC; 94799-TC; 99082-TC; A4623; A7526; C9803; G0378; J0692; J1815; J2405; J3370; J3475; J3480; J3490; J7030; J7060; U0003

== ENCOUNTER 2021-05-13 18:36 | Emergency (ER) | payer OTHER ==
[~2021-05-13] VITALS: Ht 182.9 cm; Wt 132.9 kg
[~2021-05-13 18:36] MED LIST changes: -MICA100V3 IV; -TEMA15CA GT
[2021-05-13] MEDS ORDERED: EPINEPHRINE (1:10,000) SYRINGE 1 MG/10 ML DISP.SYRIN IVP ONE (18:38)
[2021-05-13] MEDS ORDERED: SODIUM BICARBONATE SYR 50 MEQ/50 ML DISP.SYRIN IV ONE (18:38)
--- NOTE | 2021-05-13 18:40 | NUR ---
PT HEART RATE AND O2 SATURATION STARTED TO DECLINE. , RN AND RT AT BEDSIDE FOR CODE BLUE.
--- NOTE | 2021-05-13 18:43 | NUR ---
CPR INITIATED. EPI VIA TRACH GIVEN PER .
--- NOTE | 2021-05-13 18:45 | NUR ---
FIRST PULSE CHECK NO PLUSE. CPR RESUMED.
--- NOTE | 2021-05-13 18:46 | NUR ---
EPI IVP GIVEN ORDERED BY .
--- NOTE | 2021-05-13 18:47 | NUR ---
BICARB IVP GIVEN ORDERED BY .
--- NOTE | 2021-05-13 18:48 | NUR ---
2ND PULSE CHECK. NO PLUSE. RESUMED CPR.
--- NOTE | 2021-05-13 18:49 | NUR ---
EPI IVP GIVEN ORDERED BY .
--- NOTE | 2021-05-13 18:50 | NUR ---
3RD PULSE CHECK, PEA. RESUMED CPR.
--- NOTE | 2021-05-13 18:52 | NUR ---
4TH EPI IVP GIVEN ORDERED BY .
--- NOTE | 2021-05-13 18:53 | NUR ---
RETURN OF ROSC.
[2021-05-13] MEDS ORDERED: PIPERACILLIN /TAZOBACTAM 3.375 G in IV D5W 50 ML IV ONE (19:00)
[2021-05-13] MEDS ORDERED: IV NS 0.9% 1,000 ML BAG IV ONE (19:00)
[2021-05-13] MEDS ORDERED: ACETAMINOPHEN ES 500 MG TABLET GT ONE (19:00)
[2021-05-13] MEDS ORDERED: PIPERACILLIN /TAZOBACTAM 3.375 G VIAL IV ONE (19:16)
--- NOTE | 2021-05-13 19:24 | NUR ---
MOVE SHEET SUBMITTED AND CALLED FOR ICU BED.
--- NOTE | 2021-05-13 19:32 | NUR ---
BC REGAN [phone]
[2021-05-13 19:38] VITALS: BP 88/24
--- NOTE | 2021-05-13 19:42 | NUR ---
RT Code blue initiated in ER bed #11 at arrival. Able to obtain pulse after 4 rounds of compressions. Pt placed on vent settings provided by transport staff. Pt tolerating settings well. pt received on Shiley 8 XLT Distal trach. Vent plugged into red outlet with ambu bag at bedside. Will continue to monitor
--- NOTE | 2021-05-13 19:44 | NUR ---
REPORT GIVEN TO NURSE ELIZABETH FOR ANYI
--- NOTE | 2021-05-13 19:45 | NUR ---
1923: NO PULSE/ASYSTOLE. CPR INITIATED 1927: 1MG EPI GIVEN 1927: PULSE CHECK/PULSELESS ASYSTOLE 1929:1MG EPINEPHRINE AND BICARB GIVEN 1931:PULSE CHECK/ PULSELESS PEA 1934:1MG EPI GIVEN 1935: PULSE CHECK/ ROSC
--- NOTE | 2021-05-13 19:48 | NUR ---
PT PULSELESS AND . TIME OF CALLED BY MD NASCIMENTO AT 1947.
--- NOTE | 2021-05-13 19:50 | NUR ---
TYLENOL NOT ADMINSTERRED DUE TO PATIENT EXPIRING.
--- NOTE | 2021-05-13 20:00 | NUR ---
CALLED PATIENT FAMILY, SPOKE WITH DIONISIO, NOTIFED OF PATIENT PASSING.
--- NOTE | 2021-05-13 20:07 | NUR ---
[facility] CONTACTED SPOKE TO SHIELA CASE # [id number]
--- NOTE | 2021-05-13 20:08 | NUR ---
PMDalton WINTERS NOTIFIED OF PATIENT .
--- NOTE | 2021-05-13 20:29 | NUR ---
CALLED [facility] MADDEN. SPOKE WITH ANTOINE, NOT A BRITTA CASE
--- NOTE | 2021-05-13 21:12 | NUR ---
FAMILY AT BEDSIDE
--- NOTE | 2021-05-13 23:00 | NUR ---
[place] [facility]
== END 2021-05-13 23:00 ==
LOC: ER 18:37
DX: I46.9 Cardiac arrest, cause unspecified (principal); I10 Essential (primary) hypertension
CPT/HCPCS: 71045; 92950; 93005; 96365; 99285; J0171; J2543 ×2; J3490; J7030; J7060